=== PATIENT | male | born 1940 | race Caucasian/White ===

== ENCOUNTER 2023-04-29 11:31 | Outpatient (REF) | payer MEDICARE, OTHER, SELFPAY ==
--- NOTE | ~2023-04-29 | XR_ITS ---
EXAMINATION: XR KNEE, LEFT CLINICAL INFORMATION: Chronic pain of left knee COMPARISON: None available. TECHNIQUE: 5 views of the left knee. FINDINGS: No fracture or joint effusion. Alignment is anatomic. There is tricompartmental narrowing of the left knee with moderate to severe narrowing of the medial compartment and possible chondrocalcinosis of the meniscus, moderate narrowing of the lateral compartment and while sunrise view could not be obtained there is probable narrowing of the patellofemoral compartment as well. XR/XR knee LT 4V IMPRESSION: Moderate to severe degenerative change of the left knee.
== END 2023-04-29 11:32 | disposition home or self-care (01) ==
LOC: HO.HHCX 11:31
PROVIDERS: Visit Provider Internal Medicine Geriatric Medicine
DX: M25.562 Pain in left knee (principal)
CPT/HCPCS: 73564

== ENCOUNTER 2023-08-29 14:33 | Outpatient (AMB) | payer MEDICARE, OTHER, SELFPAY ==
--- NOTE | 2023-08-29 14:41 | MHC.OFFVIS ---
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 He does have some redness swelling and scaly skin on both LE Accompanied by: Employer Allergies No Known Allergies Allergy (Verified 08/29/23 14:44) HPI CREPE SOLE WIRE BRUSHER/Name referral PVD HPI Details Very complex 82-year-old gentleman presents for evaluation regarding lower extremity swelling and discomfort. He actually presented to our office in a wheelchair. 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 He is also being maintained on Xarelto for his paroxysmal AFib. He has had significant edema of the lower extremities somewhat so that he has developed ulceration and bleeding at the time of his visit on his right calf. He reports that he has known about this for a significant period of time but has not had anything performed for this. Complaints include pain over varicosities, swelling of lower extremities, cramping, fatigue, and heaviness of the lower extremities along with active ulceration. It has been affecting there daily activities including walking. It is noted more so in right leg. Patient denies any previous venous surgery or injections. Patient denies any history of DVT/ PE. Patient denies any history of phlebitis. Trial of compression includes - [id number] which he cannot tolerate They now present for vascular evaluation regarding their varicose veins. Review of Systems Const Reports as per HPI ENT Reports no additional complaints Card Denies chest pain, Denies chest pain at rest and Denies chest pain with activity Resp Denies chest congestion and Denies cough GI Reports no additional complaints Musc Details: pain over varicosities, aching of lower extremities, swelling, cramping, heaviness and tiredness, itching Denies abnormal gait Skin/Breast Reports pruritus and Denies wounds Neuro Reports no additional complaints and Denies abnormal gait Psych Denies no additional complaints Physical Exam Vital Signs: BMI result Body Mass Index 33.8 Const General: cooperative, healthy appearing and comfortable Orientation/consciousness: oriented to person, oriented to place and oriented to time Neck Carotids: no bruits Chest Chest palpation & inspection: normal inspection of the chest and normal palpation of entire chest wall Resp Effort & Inspection: normal respiratory effort and able to speak in complete sentences Cardio Rate: regular rate Heart sounds: S1 normal heart sound present and S2 normal heart sound present Peripheral pulses: Peripheral pulses 2+ throughout GI Inspection: Yes normal to inspection Skin Other: +2 edema, bilateral ulceration CEAP Classification C6 active ulcer Ep - Etiology Primary As - superficial veins P - reflux General skin exam: dry skin Wounds: wounds noted Neuro General: oriented to person, oriented to place and oriented to time Extrem Right lower extremity: full ROM, normal capillary refill and edema Left lower extremity: full ROM, normal capillary refill and edema Psych Mental Status: mental status grossly normal Assessment & Plan Assessment & Plan (1) Varicose veins of right lower extremity with inflammation: Code(s): I83.11 - Varicose veins of right lower extremity with inflammation Plan: In short, the patient has evidence of venous insufficiency with ulceration. I have discussed the pathophysiology with the patient. In addition I have provided informational material regarding venous disease to the patient. We have discussed conservative measures including compression, elevation, and exercise. I have also provided a handout regarding appropriate use of compression stockings and where to purchase good compression stockings as well. I have taken the liberty of ordering venous insufficiency testing with the patient. They will follow up with me after testing. The patient had an opportunity to ask questions regarding the treatment plan. All questions were answered. Imaging studies, laboratory studies and physical exam results were discussed and reviewed in detail. No major barriers to understanding were identified. The patient expressed understanding and agreement with the above treatment plan. The patient is aware they should contact our office by phone for worsening of the current condition or the appearance of new symptoms. Thank you for allowing me to participate in the vascular care of this patient. If you have any questions or concerns regarding the treatment for the above condition please do not hesitate to contact me. The office telephone contact is [phone]. This note is constructed using voice recognition software. While every effort has been made to ensure accuracy, supervisor boatbuilders wood errors may have been included. Thank you for allowing me to participate in the care of your patient. Yours sincerely, Sarwat Santos MD, FACS, R.P.V.I. Orders: Orders US venous duplex LE BI 1 Week I83.11 - Varicose veins of right lower extremity with inflammation Coding Level of Care Code New Pt Level 4 (22004) Diagnoses Varicose veins of right lower extremity with inflammation I83.11
[2023-08-29 14:43] VITALS: BMI 33.8
== END 2023-08-29 15:42 | disposition home or self-care (01) ==
PROVIDERS: Visit Provider Surgery Vascular Surgery
DX: I83.11 Varicose veins of right lower extremity with inflammation (principal)
CPT/HCPCS: 99203

== ENCOUNTER → 2023-08-29 14:33 | Outpatient (BNVA) | payer MEDICARE, OTHER, SELFPAY | PROVIDERS: Visit Provider Surgery Vascular Surgery | DX: I83.11 Varicose veins of right lower extremity with inflammation (principal) | CPT/HCPCS: 99202 ==

== ENCOUNTER 2024-01-01 16:05 | Outpatient (REF) | payer MEDICARE, OTHER, SELFPAY ==
[2024-01-01 17:43] LABS: MANUAL DIFF FLAG NO
[2024-01-01 18:14] LABS: Alanine Aminotransferase 40 U/L (0-40); Alkaline Phosphatase 91 U/L (39-117); Anion Gap 14 (12-20); Aspartate Amino Transferase 29 U/L (5-37); Bilirubin Total 0.8 mg/dL (0.0-1.0); Blood Urea Nitrogen 16 mg/dL (9-16); Calcium 10.7 mg/dL (8.4-10.2); Carbon Dioxide 27 mmol/L (22-29); Chloride 103 mmol/L (96-108); Cholesterol 141 mg/dL (<200); Estimated Glomerular Filt Rate > 60; Glucose Random 113 mg/dL (60-115); HDL Cholesterol 53 mg/dL (>40); LDL Cholesterol Calculated 70 mg/dL (<100); Potassium 3.4 mmol/L (3.3-5.1); Sodium 141 mmol/L (135-145); Total Protein 7.9 g/dL (6.5-8.0); Triglycerides 90 mg/dL (<150)
[2024-01-01 18:21] LABS: Basophils Percent Auto 0.3 % (0-2); Eosinophils Absolute Auto 0.2 X10*3/uL (0.0-0.4); Hematocrit 46.7 % (42.0-52.0); Hemoglobin 15.7 g/dl (14.0-18.0); Imm Gran Abs Auto 0.04 X10*3/uL (0.00-0.03); Imm Gran Pct Auto 0.5 % (0.0-0.4); Lymphocytes Absolute Auto 1.4 X10*3/uL (1.2-4.9); Lymphocytes Percent Auto 16.2 % (20-40); Mean Corpuscular HGB Conc 33.6 g/dl (31.0-36.0); Mean Corpuscular Hemoglobin 31.2 pg (27.0-33.0); Mean Corpuscular Volume 92.8 fL (80.0-98.0); Mean Platelet Volume 9.2 fL (9.4-12.4); Monocytes Absolute Auto 0.8 X10*3/uL (0.1-1.2); Monocytes Percent Auto 8.4 % (2-11); Neutrophils Absolute Auto 6.4 x10*3/uL (2.0-8.3); Neutrophils Percent Auto 72.6 % (45-73); Platelet Count 261 X10*3/uL (160-400); Red Blood Count 5.03 X10*6/uL (4.60-5.80); Red Cell Distribution Width 13.7 % (11.0-16.0); White Blood Count 8.9 X10*3/uL (4.8-10.8)
== END 2024-01-01 16:06 | disposition home or self-care (01) ==
LOC: HO.HHCL 16:05
PROVIDERS: Visit Provider Internal Medicine Geriatric Medicine
DX: I10 Essential (primary) hypertension (principal); R03.0 Elevated blood-pressure reading, without diagnosis of hypertension; E78.5 Hyperlipidemia, unspecified; Z79.01 Long term (current) use of anticoagulants
CPT/HCPCS: 36415; 80053; 80061; 85025

== ENCOUNTER 2024-04-17 16:14 | Outpatient (REF) | payer MEDICARE, OTHER, SELFPAY ==
[2024-04-17 18:14] LABS: Anion Gap 15 (12-20); Blood Urea Nitrogen 20 mg/dL (9-16); Calcium 9.5 mg/dL (8.4-10.2); Carbon Dioxide 27 mmol/L (22-29); Chloride 105 mmol/L (96-108); Estimated Glomerular Filt Rate > 60; Glucose Random 117 mg/dL (60-115); Potassium 3.5 mmol/L (3.3-5.1); Sodium 143 mmol/L (135-145)
[2024-04-17 18:32] LABS: Vitamin D 25-OH Total 16.3 ng/mL (>30)
[2024-04-18 05:43] LABS: Parathyroid Hormone Intact 78.4 pg/mL (8.7-77.1)
== END 2024-04-17 16:15 | disposition home or self-care (01) ==
LOC: HO.HHCL 16:14
PROVIDERS: Visit Provider Internal Medicine Geriatric Medicine
DX: E83.52 Hypercalcemia (principal)
CPT/HCPCS: 36415; 80048; 82306; 83970

== ENCOUNTER 2024-07-20 15:35 | Outpatient (REF) | payer MEDICARE, OTHER, SELFPAY ==
[2024-07-20 16:44] LABS: MANUAL DIFF FLAG NO
[2024-07-20 16:57] LABS: Basophils Percent Auto 0.5 % (0-2); Eosinophils Absolute Auto 0.2 X10*3/uL (0.0-0.4); Eosinophils Percent Auto 2.5 % (0-4); Hematocrit 43.7 % (42.0-52.0); Hemoglobin 14.6 g/dl (14.0-18.0); Imm Gran Abs Auto 0.03 X10*3/uL (0.00-0.03); Imm Gran Pct Auto 0.4 % (0.0-0.4); Lymphocytes Absolute Auto 1.1 X10*3/uL (1.2-4.9); Lymphocytes Percent Auto 13.9 % (20-40); Mean Corpuscular HGB Conc 33.4 g/dl (31.0-36.0); Mean Corpuscular Hemoglobin 30.9 pg (27.0-33.0); Mean Corpuscular Volume 92.6 fL (80.0-98.0); Mean Platelet Volume 9.2 fL (9.4-12.4); Monocytes Absolute Auto 0.8 X10*3/uL (0.1-1.2); Monocytes Percent Auto 10.4 % (2-11); Neutrophils Absolute Auto 5.8 x10*3/uL (2.0-8.3); Neutrophils Percent Auto 72.3 % (45-73); Platelet Count 252 X10*3/uL (160-400); Red Blood Count 4.72 X10*6/uL (4.60-5.80); Red Cell Distribution Width 13.9 % (11.0-16.0); White Blood Count 8.1 X10*3/uL (4.8-10.8)
[2024-07-20 17:14] LABS: Parathyroid Hormone Intact 61.3 pg/mL (8.7-77.1)
[2024-07-20 17:26] LABS: Anion Gap 15 (12-20); Blood Urea Nitrogen 17 mg/dL (9-16); Calcium 9.7 mg/dL (8.4-10.2); Carbon Dioxide 28 mmol/L (22-29); Chloride 104 mmol/L (96-108); Estimated Glomerular Filt Rate > 60; Glucose Random 96 mg/dL (60-115); Potassium 3.5 mmol/L (3.3-5.1); Sodium 143 mmol/L (135-145)
[2024-07-20 17:31] LABS: Vitamin D 25-OH Total 30.4 ng/mL (>30)
== END 2024-07-20 15:36 | disposition home or self-care (01) ==
LOC: HO.HHCL 15:35
PROVIDERS: Visit Provider Internal Medicine Geriatric Medicine
DX: I10 Essential (primary) hypertension (principal); Z79.01 Long term (current) use of anticoagulants
CPT/HCPCS: 36415; 80048; 82306; 83970; 85025

== ENCOUNTER 2025-03-08 14:01 | Outpatient (REF) | payer MEDICARE, OTHER, SELFPAY ==
--- OUTSIDE RECORDS SUMMARY | 2025-03-08 14:08 | XMS_ITS | Encounter Summary ---
Author Organization [facility] Address [address] [address] Phone Care Team Providers Care Shuttle Inspector Name Role Phone Devaughn Ng MD Unavailable [phone] Billy Issa MD Unavailable [phone] Mil Rowe MD Unavailable [phone] Billy Issa MD Primary Care Provid er Encounter Details Date Type Department Care Team (Latest Contact Info) Description 05/28/2018 Ancillary Orders Non-Invasive Cardiology [address] [place] [address] Devaughn Ng MD [address] [place] [address] [email or web address] Cardioembolic stroke Social History Tobacco Use Types Packs/Day Years Used Date Smoking Tobacco: Former Cigarettes Q uit: 12/26/1967 Smokeless Tobacco: Former Quit: 12/26/1967 Comments:Smoked pipe,did not inhale Alcohol Use Standard Drinks/Week Comments Yes 0 (1 standard drink = 0.6 oz pur e alcohol) occ Sex and Gender Information Value Date Recorded Sex Assigned at Not on file Legal Sex Male 10:12 PM EDT Gender Identity Not on file Sexual Orientation Not on file documented as of this encounter Plan of Treatment Not on file documented as of this encounter Visit Diagnoses Diagnosis Cardioembolic stroke documented in this encounter Care Teams Shuttle Inspector Relationship Specialty Start Date End Date Billy Issa MD [address] [facility] [address] [place] [address] PCP - General 10/24/17 Devaughn Ng MD [email or web address] Historical LMR Provider 08/10/17 Billy Issa MD [address] [place] [address] Historical LMR Provider 08/10/17 2 Mil Rowe MD [address] [place] [address] [email or web address] Historical LMR Provider 08/10/17 10/28/21 documented as of this encounter Additional Source Comments The information contained in this document represents components of the legal health record. It is not the complete legal health record.[facility]
--- OUTSIDE RECORDS SUMMARY | 2025-03-08 14:08 | XMS_ITS | Encounter Summary ---
Author Organization [facility] Address [address] [facility] [address] [place] [address] Phone Care Team Providers Care Roof Fixer Name Role Phone Devaughn Ng MD Unavailable [phone] Billy Issa MD Unavailable [phone] Mil Rowe MD Unavailable [phone] Billy Issa MD Primary Care Provid er Encounter Details Date Type Department Care Team (Late st Contact Info) Description 05/28/2018 Ancillary [facility] [address] [place] [address] Devaughn Ng MD [address] [place] [address] [email or web address] Social History Tobacco Use Types Packs/Day Years [...] documented as of this encounter Visit Diagnoses Not on filedocumented in this encounter Care Teams Roof Fixer Relationship Specialty Start Date End Date Billy Issa MD [address] [facility] [address] [place] [address] PCP - General 10/24/17 Devaughn Ng MD [email or web address] Historical LMR Provider 08/10/17 Billy Issa MD [address] [place] [address] 1 [place] [address] Historical LMR Provider 08/10/17 2 Mil Rowe MD [address] [place] [address] [email or web address] Historical LMR Provider 08/10/17 10/28/21 documented as of this encounter Additional Source Comments The information contained in this document represents components of the legal health record. It is not the complete legal health record.[facility]
--- OUTSIDE RECORDS SUMMARY | 2025-03-08 14:08 | XMS_ITS | Encounter Summary ---
Author Organization [facility] Address [address] [facility] [address] [place] [address] Phone Care Team Providers Care Tooth Grinder Name Role Phone Devaughn Ng MD Unavailable Billy Issa MD Unavailable [phone] Mil Rowe MD Unavailable [phone] Billy Issa MD Primary Care Provid er Encounter Details Date Type Department Care Team (Late st Contact Info) Description 03/23/2021 Ancillary Orders Non-Invasive Cardiology [address] [place] [address] Walter Sheikh MD [address] [place] [address] [email or web address] Cryptogenic stroke Social History Tobacco Use Types Packs/Day [...] on file documented as of this encounter Results * DEVICE CHECK: ILR IN-HOME INTERROGATION (03/23/2021 3:18 PM EDT) Narrative Walter Sheikh MD - 03/27/2021 9:15 PM EDT Remote interrogation of implantable loop recorder. ??Reason for implant: ?? Cryptogenic stroke ?? Insurance Claim Representative: [employer] Symptoms: ??0 Pauses: ??19, undersensed R waves Bradycardia: ??0 Tachycardia: ??1 AF w/RVR on 02/18, actual rates to 170's AT/AF: ??615 episodes since November, AF burden 2.3% lifetime He is anticoagulated on Xarelto Battery status: OK Additional comments: ??Device functioning appropriately. Normal device function. Patient to follow-up for continued monitoring every 1 month. Report prepared by Brenna Tyler RN us Walter Sheikh MD [facility] [place] Final Result documented in this encounter Visit Diagnoses Diagnosis Cryptogenic stroke Cryptogenic stroke documented in this encounter Care Teams Tooth Grinder Relationship Specialty Start Date End Date Billy Issa MD [address] [address] PCP - General 10/24/17 Devaughn Ng MD [email or web address] Historical LMR Provider 08/10/17 Billy Issa MD [address] [place] [phone] Historical LMR Provider 08/10/17 2 Mil Rowe MD [address] [address] [email or web address] Historical LMR Provider 08/10/17 10/28/21 documented as of this encounter Additional Source Comments The information contained in this document represents components of the legal health record. It is not the complete legal health record.[facility]
--- OUTSIDE RECORDS SUMMARY | 2025-03-08 14:08 | XMS_ITS | Encounter Summary ---
Author Organization [employer] Address [address] [place] [address] 7 [place] [address] Care Team Providers Care Tag Maker Name Role Phone Name, Stephen PADRON Primary Care Provider [phone] Reason for Visit * Reason Comments Med Refill Encounter Details Date Type Department Care Team ([facility] Contact Info) Description 09/05/2024 Refill [facility] [address] [place], [place] [id number] Name, MD Stephen [address] [place] [address] Social History Tobacco Use Types Packs/Day Years Used Date Smoking Tobacco: Never Smokeless Tobacco: Never Alcohol Use Standard Drinks/Week Comments Not Currently 0 (1 standard drink = 0.6 oz pur e alcohol) occassional Alcohol Answer Date Recorded Frequency of Alcohol Consumption Not on file 04/17/2024 Average Number of Drinks Not on file 024 Frequency of Binge Drinking Not on file 03/22 Score 0 04/17/2024 Depression Answer Date Recorded Patient Health Questionnaire-9 Score 0 04/17/2024 Patient Health Questionnaire-9 Score 0 04/17/2024 Last PHQ-9: Questionnaire Data Not on file 0 04/17/2024 Housing Stability Answer Date Recorded What is your housing situation today? I have nena nava 08/06/[address] you li ve. Do you have problems with any of the following? None of the above 08/06/2023 Food Insecurity Answer Date Recorded Within the past 12 months, y ou worried that your food would run out before you got money to buy more: Never True 08/06/2023 Within the past 12 months,th e food you bought just didn't last and you didn't have enough money to get more: Never True Transportation Answer Date Recorded In the past 12 months, has l ack of transportation kept you from medical appts, meetings, work or from getting things needed for daily living? No 08/06/2023 Utilities Answer Date Recorded In the past 12 months, has t he electric, gas, oil or water company threatened to shut off services in your home? No 08/06/2023 Depression Answer Date Recorded Patient Health Questionnaire-2 Score 0 04/17/2024 Internet Access Answer Date Recorded Internet Access Q1 No 06/22/2024 Internet Access Q2 I do not want or need it 11/2023 Sex and Gender Information Value Date Recorded Sex Assigned at Male 04/03/2023 10:36 AM EDT Legal Sex Male 10:33 AM EDT Gender Identity Male 04/03/2023 10:36 AM EDT Sexual Orientation Straight 04/03/2023 10 :36 AM EDT documented as of this encounter Plan of Treatment Not on file documented as of this encounter Visit Diagnoses Not on filedocumented in this encounter Additional Health Concerns Assessment Noted Time PHQ-9 Depression Total Score: 0 04/17/20 24 3:31 PM EDT documented as of this encounter Care Teams Tag Maker Relationship Specialty Start Date End Date Name, MD Stephen [address] [place] [address] PCP - General Internal Medicine 04/29/23 documented as of this encounter
--- OUTSIDE RECORDS SUMMARY | 2025-03-08 14:08 | XMS_ITS | Encounter Summary ---
Author Organization [facility] Address [address] [facility] [address] [place] [address] Phone Care Team Providers Care Distillery Miller Name Role Phone Devaughn Ng MD Unavailable Billy Issa MD Unavailable [phone] PerMil veliz MD Unavailable [phone] Billy Issa MD Primary Care Provid er Encounter Details Date Type Department Care Team (Late st Contact Info) Description 12/27/2017 Procedure [facility] [address] [place] [address] Social History Tobacco Use Types Packs/Day Years Used Date Smoking Tobacco: Former Cigarettes Q uit: 12/26/1967 Smokeless Tobacco: Former Quit: 12/26/1967 Comments:Smoked pipe,did not inhale Sex and Gender Information Value Date Recorded Sex Assigned at Not on file Legal Sex Male 10:12 PM EDT Gender Identity Not on file Sexual Orientation Not on file documented as of this encounter Plan of Treatment Not on file documented as of this encounter Visit Diagnoses Not on filedocumented in this encounter Care Teams Distillery Miller Relationship Specialty Start Date End Date Billy Issa MD [address] [facility] [address] [place] [address] PCP - General 10/24/17 Devaughn Ng MD [email or web address] Historical LMR Provider 08/10/17 Billy Issa MD 35 [facility] 1 [place] [address] Historical LMR Provider 08/10/17 2 Mil Rowe MD [address] [place] [address] [email or web address] Historical LMR Provider 08/10/17 10/28/21 documented as of this encounter Additional Source Comments The information contained in this document represents components of the legal health record. It is not the complete legal health record.[facility]
--- OUTSIDE RECORDS SUMMARY | 2025-03-08 14:08 | XMS_ITS | Encounter Summary ---
Author Organization [facility] Address [address] [facility] [address] [place] [address] Phone Care Team Providers Care Business Manager Name Role Phone Devaguhn Ng MD Unavailable [phone] Billy Issa MD Unavailable [phone] Mil Rowe MD Unavailable [phone] Billy Issa MD Primary Care Provid er Encounter Details Date Type Department Care Team (Late st Contact Info) Description 12/13/2020 Ancillary Orders Non-Invasive Cardiology [address] [place] [address] Devaughn Ng MD [address] [place] [address] [email or web address] Cryptogenic stroke Social History Tobacco Use Types [...] Results * DEVICE CHECK: ILR IN-HOME INTERROGATION (12/13/2020 9:31 AM EST) Narrative Devaughn Ng MD - 12/13/2020 4:03 PM EST Interrogation of [employer] implantable loop recorder. ??Indication cryptogenic stroke. Since last interrogation - Bradycardia? 0 Tachycardia? 0 Pauses? 0 Atrial tachycardia/atrial fibrillation 0 We will continue to monitor routinely. Eduard Kraft NP Devaughn Ng MD [facility] [place] Final Result documented in this encounter Visit Diagnoses Diagnosis Cryptogenic stroke Cryptogenic stroke documented in this encounter Care Teams Business Manager Relationship Specialty Start Date End Date Billy Issa MD [address] [facility] [address] [place] [phone] PCP - General 10/24/17 Devuaghn Ng MD [email or web address] Historical LMR Provider 08/10/17 Billy Issa MD [address] [facility] [address] [place] [address] Historical LMR Provider 08/10/17 2 Mil Rowe MD [address] [place] [address], [address] [address] [email or web address] Historical LMR Provider 08/10/17 10/28/21 documented as of this encounter Additional Source Comments The information contained in this document represents components of the legal health record. It is not the complete legal health record.[facility]
--- OUTSIDE RECORDS SUMMARY | 2025-03-08 14:08 | XMS_ITS | Encounter Summary ---
Author Organization [facility] Address [address] [facility] [address] [place] [address] Phone Care Team Providers Care Food Service Order Clerk Name Role Phone Devaughn Ng MD Unavailable Billy Issa MD Unavailable [phone] Mil Rowe MD Unavailable [phone] Billy Issa MD Primary Care Provid er Encounter Details Date Type Department Care Team (Late st Contact Info) Description 05/13/2018 Ancillary [facility] [address] [place] [address] Devaughn Ng MD [address] [place] [address] [email or web address] Social History Tobacco Use Types Packs/Day Years [...] on filedocumented in this encounter Care Teams Food Service Order Clerk Relationship Specialty Start Date End Date Billy Issa MD [address] [facility] [address] [place] [address] PCP - General 10/24/17 Devaughn Ng MD [email or web address] Historical LMR Provider 08/10/17 Billy Issa MD [address] [place] [address] 1 [place] [address] Historical LMR Provider 08/10/17 2 Mil Rowe MD [address] [place] [address] [email or web address] Historical LMR Provider 08/10/17 10/28/21 documented as of this encounter Additional Source Comments The information contained in this document represents components of the legal health record. It is not the complete legal health record.[facility]
--- OUTSIDE RECORDS SUMMARY | 2025-03-08 14:08 | XMS_ITS | Clinical Summary ---
Author Organization [facility] Address [address] [facility] [address] [place] [address] Phone Care Team Providers Care Sem Manager Name Role Phone Devaughn Ng MD Unavailable [phone] Billy Issa MD Primary Care Provid er Allergies Active Allergy Reactions Criticality Noted Date Comments House Dust Sneezing 01/06/2018 Pollens Extract Sneezing 01/06/2018 Medications VIT C/E/ZN/COPPR/LUTE IN/ZEAXAN (PRESERVISION AREDS 2 ORAL) Active chlorthalidone (HYGROTON) 25 MG tablet Take 1 tablet by mouth every morning. Active losartan (COZAAR) 50 MG tablet Take 1 tablet by mouth daily. Active LACTOBACILLUS ACIDOPHILUS (PROBIOTIC ORAL) Act jericho flaxseed oil Oil Act jericho calcium carbonate (OS-ITA) 1,500 mg (600 mg elemental) tablet Take 1 tablet by mouth daily. with meals Active Medication-Free Text Vitamin D-3 Active UBIDECARENONE (COQ-10 ORAL) Active Medication-Free Text Vitamin B 12 Active Medication-Free Text Multivitamin Active DOCOSAHEXANOIC ACID/EPA (FISH OIL ORAL) Active BILBERRY ORAL Active atorvastatin (LIPITOR) 40 MG tablet Take 40 mg by mouth daily. Active potassium chloride SA (K-DUR,KLOR-CON) 20 MEQ ER tablet Take 20 mEq by mouth 2 (two) times a day. Active GLUCOSAMINE HCL AND SULFATE (GLUCOSAMINE COMPLEX ORAL) Take by mouth. A ctive amLODIPine (NORVASC) 10 MG tablet Take 10 mg by mouth daily. Active BIOTIN ORAL Take 1 tablet by mouth daily. Active XARELTO 20 mg TabIndications:Hi story of cardioembolic stroke,Paroxysmal atrial fibrillation TAKE 1 TABLET BY MOUTH EVERY DAY WITH DINNER 90 tablet 1 12/04/19 22 Active Active Problems Problem Noted Date Diagnosed Date Paroxysmal atrial fibrillation 08/10/2018 Overview (08/10/2018): Detected by implanted loop recorder Assessment & Plan (12/04/2019 4:40 PM EST): We will continue to check his device routinely. He has remote monitoring which we are checking to make sure that it is connected properly. We will follow-up with him in 1 year per his request. I have sent a refill for his anticoagulant. He is asymptomatic. Continue with current occasions. Bigeminy 12/11/2017 Essential hypertension 12/11/2017 Assessment & Plan (12/04/2019 4:40 PM EST): His blood pressure today is elevated. He tells me that he usually gets it checked at his PCP office and it is in the 130s systolic. Today it is 150/70 on multiple checks (per his request). I have suggested that we increase his losartan since he tells me that he is consistently over 130 systolic. He tells me he would prefer to follow this with his PCP. Palpitations 12/11/2017 History of cardioembolic stroke 12/11/2017 Overview (12/11/2017): November 2017, [facility] Assessment & Plan (12/04/2019 4:40 PM EST): Continue anticoagulation. Family History Medical History Relation Comments Hypertension Sibling 2 Relation Status Comments Sibling 1 Sibling 2 Social History Tobacco Use Types Packs/Day Years Used Date Smoking Tobacco: Former Cigarettes Q uit: 12/26/1967 Smokeless Tobacco: Former Quit: 12/26/1967 Comments:Smoked pipe,did not inhale Alcohol Use Standard Drinks/Week Comments Yes 0 (1 standard drink = 0.6 oz pur e alcohol) occ Education Answer Date Recorded Are you interested in more education? Not on felicitas e 02/15/2023 Are you concerned about learning? Not on file 02/15/2023 No 02/15/2023 No 02/15/2023 Digital Access Answer Date Recorded No 03/16/2023 No 03/16/2023 No 03/16/2023 Reliable internet access at home? Not on file 03/16/2023 Device with a working camera? Not on file Sex and Gender Information Value Date Recorded Sex Assigned at Not on file Legal Sex Male 10:12 PM EDT Gender Identity Not on file Sexual Orientation Not on file Last Filed Vital Signs Vital Sign Reading Time Taken Comments Blood Pressure 150/70 12/04/2019 4:09 PM EST Pulse 92 12/04/2019 4:09 PM EST Temperature 36.8 ??C (98.2 ??F) 01/10/2018 7:00 AM ED T Respiratory Rate 12 01/10/2018 7:00 AM EDT Oxygen Saturation 93% 12/04/2019 4:09 PM EST Inhaled Oxygen Concentration - - Weight 100.5 kg (221 lb 9.6 oz) 12/04/2019 4:09 PM EST Height 176.5 cm (5' 9.5 ) 12/04/2019 4:09 PM EST Body Mass Index 32.26 12/04/2019 4:09 PM EST Plan of Treatment Health Maintenance Due Date Last Done Comments Adult Td,Tdap Booster 1940 BLOOD PRESSURE 1940 CREATININE LEVEL 1940 POTASSIUM LEVEL 1940 DEPRESSION SCREENING 1952 PNEUMOCOCCAL VACCINES (50+ years) (1 of 1 - PCV) 1990 RSV VACCINE (1 - 1-dose 75+ series) 2015 COVID-19 VACCINE (3 - 2023-2 5 season) 2024 01/03/2021, 12/06/2020 ZOSTER VACCINES Completed 04/01/2018, 02/01/2018 HEPATITIS A VACCINES Aged Out No long er eligible based on patient's age to complete this topic HIB VACCINES Aged Out No longer eligi ble based on patient's age to complete this topic MENINGOCOCCAL VACCINES (ACWY) Aged Out No longer eligible based on patient's age to complete this topic MENINGOCOCCAL VACCINES (B) Aged Out N o longer eligible based on patient's age to complete this topic Medical Devices Implanted Type Area Wall Taper Device Identifier Shelf Expiration Date Model / Serial / Lot Reveal Linq Loop Recorder System - [id number] Implanted:Qty : 1 on 01/10/2018 by Devaughn Ng MD at [facility] Implantable Monitor [employer] [id number] 09/17/2018 [id number] / [id number] S / Insurance MEDICARE PART A & B [employer] MEDICARE SUPPLEMENT MEDICARE PART A & B [employer] MEDICARE SUPPLEMENT MEDICARE PART A & B [facility] MEDICARE SUPPLEMENT MEDICARE PART A & B [facility] [employer] MEDICARE SUPPLEMENT MEDICARE PART A & B [facility] MEDICARE SUPPLEMENT MEDICARE PART A & B [facility] MEDICARE SUPPLEMENT MEDICARE PART A & B [facility] [id number] MEDICARE PART A & B Member Subscriber Plan / Payer (Ef fective 2013-Present) Name:Devaughn Rebolledo Member ID:[id number] Relation to Subscriber:Self Name:Amaury Devaughn Subscriber ID:[id number] Payer ID:[id number] Group ID:Not on file Type:Medicare Address: [employer] [address] [employer] MEDICARE SUPPLEMENT MEDICARE PART A & B [employer] MEDICARE SUPPLEMENT Advance Directives For more information, please contact: [phone] (9AM - 5PM [place], Saturday-Saturday) * Full Code (Presumed) (Latest Code Status on File) Date Activated Date Inactivated Comments 01/10/2018 7:46 AM 01/11/2018 4:14 AM Care Teams Sem Manager Relationship Specialty Start Date End Date Billy Issa MD [address] [place] [phone] PCP - General 10/24/17 Devaughn Ng MD [email or web address] Historical LMR Provider 08/10/17 Additional Source Comments The information contained in this document represents components of the legal health record. It is not the complete legal health record.[facility]
--- OUTSIDE RECORDS SUMMARY | 2025-03-08 14:08 | XMS_ITS | Encounter Summary ---
Author Organization [facility] Address [address] [facility] [address] [place] [address] Phone Care Team Providers Care Hop Trainer Name Role Phone Devaughn Ng MD Unavailable Billy Issa MD Unavailable [phone] Mil Rowe MD Unavailable [phone] Billy Issa MD Primary Care Provid er Encounter Details Date Type Department Care Team (Late st Contact Info) Description 01/10/2018 Procedure Pass [facility] [address] [place] [address] Social History Tobacco Use Types Packs/Day Years [...] on filedocumented in this encounter Care Teams Hop Trainer Relationship Specialty Start Date End Date Billy Issa MD [address] [facility] 1 [place] [phone] PCP - General 10/24/17 Devaughn Ng MD [email or web address] Historical LMR Provider 08/10/17 Billy Issa MD [address] [place] [address] 1 [place] [address] Historical LMR Provider 08/10/17 2 Mil Rowe MD [address] [place] [address] [email or web address] Historical LMR Provider 08/10/17 10/28/21 documented as of this encounter Additional Source Comments The information contained in this document represents components of the legal health record. It is not the complete legal health record.[facility]
--- OUTSIDE RECORDS SUMMARY | 2025-03-08 14:08 | XMS_ITS | Encounter Summary ---
Author Organization [facility] Address [address] [facility] [address] [place] [address] Phone Care Team Providers Care Rim Fire Priming Tool Setter Name Role Phone Devaughn Ng MD Unavailable [phone] Billy Issa MD Unavailable [phone] Mil Rowe MD Unavailable [phone] Billy Issa MD Primary Care Provid er Encounter Details Date Type Department Care Team (Late st Contact Info) Description 05/13/2018 Ancillary Orders Non-Invasive Cardiology [address] [place] [address] Devaughn Ng MD [address] [place] [address] [email or web address] Atrial fibrillation, unspecified type Social History Tobacco Use Types Packs/Day Years [...] this encounter Results * DEVICE CHECK: ILR REMOTE INTERROGATION W/TECH REVIEW (05/13/2018 11:40 AM EDT) Narrative Devaughn Ng MD - 05/19/2018 5:27 PM EDT Interrogation of the implantable loop recorder - placed for cryptogenic stroke Atrial fibrillation: There were 9 episodes of atrial fibrillation representing 1.9% of the time. Tachycardia: 0 Bradycardia: 0 Pauses: 0 The patient is anticoagulated on Xarelto. Eduard Kraft SUPERVISOR CONCRETE BLOCK PLANT Devaughn Ng MD [facility] ORDER [place] Final Result documented in this encounter Visit Diagnoses Diagnosis Atrial fibrillation, unspecified type Atrial fibrillation, unspecified type documented in this encounter Care Teams Rim Fire Priming Tool Setter Relationship Specialty Start Date End Date Billy Issa MD [address] [facility] [employer] [address] [facility] [address] [place] [phone] PCP - General 10/24/17 Devaughn Ng MD [email or web address] Historical LMR Provider 08/10/17 Billy Issa MD [address] [facility] [employer] [address] [place] [phone] Historical LMR Provider 08/10/17 2 Mil Rowe MD [address] [place] [address], [address] [address] [email or web address] Historical LMR Provider 08/10/17 10/28/21 documented as of this encounter Additional Source Comments The information contained in this document represents components of the legal health record. It is not the complete legal health record.[facility]
--- OUTSIDE RECORDS SUMMARY | 2025-03-08 14:08 | XMS_ITS | Encounter Summary ---
Author Organization [employer] Address [address] [facility] 7t [place] [address] Care Team Providers Care Starting Sheet Tank Operator Name Role Phone Name, Stephen PADRON Primary Care Provider [phone] Encounter Details Date Type Department Care Team (Latest Contact Info) Description 03/08/2025 Travel Social History Tobacco Use Types Packs/Day Years [...] documented as of this encounter Care Teams Starting Sheet Tank Operator Relationship Specialty Start Date End Date Name, MD Stephen [address] [place] [address] PCP - General Internal Medicine 04/29/23 documented as of this encounter
--- OUTSIDE RECORDS SUMMARY | 2025-03-08 14:08 | XMS_ITS | Encounter Summary ---
Author Organization [employer] Address [address] [place] [address] 7 [place] [address] Care Team Providers Care Steam Locomotive Firer/Fireman Name Role Phone Name, Stephen PADRON Primary Care Provider [phone] Reason for Visit * Reason Onset Date Comments Appointment Request 02/02/2025 Encounter Details Date Type Department Care Team ([facility] Contact Info) Description 02/02/2025 Telephone [facility] MEDICINE [address] [place], [place] [phone] Name, MD Stephen [address] [place] [address] Appointment Request Social History Tobacco Use Types Packs/Day Years [...] AM EDT documented as of this encounter Miscellaneous Notes * Telephone Encounter - Mango Hallman - 02/02/2025 9:21 AM EDT Tc from pt requesting to R/s Appt from 12/01/24. Pt is not available on Tuesdays and Fridays Afternoon. Contact pt at [phone] documented in this encounter Plan of Treatment Not on file documented as of this encounter Visit Diagnoses Not on filedocumented in this encounter Additional Health Concerns Assessment Noted Time PHQ-9 Depression Total Score: 0 04/17/20 24 3:31 PM EDT documented as of this encounter Care Teams Steam Locomotive Firer/Fireman Relationship Specialty Start Date End Date Name, MD Stephen [address] [place] [address] PCP - General Internal Medicine 04/29/23 documented as of this encounter
--- OUTSIDE RECORDS SUMMARY | 2025-03-08 14:08 | XMS_ITS | Encounter Summary ---
Author Organization [facility] Address [address] [facility] [address] [place] [address] Phone Care Team Providers Care Multi Site Leasing Consultant Name Role Phone Devaughn Ng MD Unavailable [phone] Billy Issa MD Unavailable [phone] Mil Rowe MD Unavailable [phone] Billy Issa MD Primary Care Provid er Encounter Details Date Type Department Care Team (Late st Contact Info) Description 03/23/2021 Procedure Pass Non-Invasive Cardiology [address] [place] [address] Social History Tobacco Use Types Packs/Day Years [...] on filedocumented in this encounter Care Teams Multi Site Leasing Consultant Relationship Specialty Start Date End Date Billy Issa MD [address] [facility] 1 [place] [phone] PCP - General 10/24/17 Devaughn Ng MD [email or web address] Historical LMR Provider 08/10/17 Billy Issa MD [address] [place] [address] 1 [place] [phone] Historical LMR Provider 08/10/17 2 Mil Rowe MD [address] [place] [address] [email or web address] Historical LMR Provider 08/10/17 10/28/21 documented as of this encounter Additional Source Comments The information contained in this document represents components of the legal health record. It is not the complete legal health record.[facility]
--- OUTSIDE RECORDS SUMMARY | 2025-03-08 14:08 | XMS_ITS | Encounter Summary ---
Author Organization [facility] Address [address] [facility] [address] [place] [address] Phone Care Team Providers Care Ride Operator Name Role Phone Devaughn Ng MD Unavailable Billy Issa MD Unavailable [phone] Mil Rowe MD Unavailable [phone] Billy Issa MD Primary Care Provid er Encounter Details Date Type Department Care Team (Late st Contact Info) Description 03/23/2021 Ancillary [facility] [address] [facility] 3rd Floor, [address] [place] [address] Walter Sheikh MD 30 [place] [address] [email or web address] Social History Tobacco Use Types Packs/Day Years [...] on filedocumented in this encounter Care Teams Ride Operator Relationship Specialty Start Date End Date Billy Issa MD [address] [facility] [address] [place] [address] PCP - General 10/24/17 Devaughn Ng MD [email or web address] Historical LMR Provider 08/10/17 Billy Issa MD [address] [place] [address] Historical LMR Provider 08/10/17 2 Mil Rowe MD [address] [place] [phone] [email or web address] Historical LMR Provider 08/10/17 10/28/21 documented as of this encounter Additional Source Comments The information contained in this document represents components of the legal health record. It is not the complete legal health record.[facility]
--- OUTSIDE RECORDS SUMMARY | 2025-03-08 14:08 | XMS_ITS | Encounter Summary ---
Author Organization [employer] [facility] Address [address] [place] [address] 7 [place] [address] Care Team Providers Care Entry Level Software Developer Name Role Phone Name, Stephen PADRON Primary Care Provider [phone] Reason for Visit * Reason Comments Hypertension Encounter Details Date Type Department Care Team ([facility] st Contact Info) Description 03/08/2025 1:00 PM EDT Office Visit [facility] 230 [place], [place] [phone] Name, MD Stephen [address] [place] [address] Pressure injury of buttock, stage 1, unspecified laterality (Primary Dx); Cellulitis of buttock; Hypertension, unspecified type; Anticoagulated Social History Tobacco Use Types Packs/Day Years Used Date Smoking Tobacco: Never Smokeless Tobacco: Never Tobacco Cessation:Counseling Given: Not Answered Alcohol Use Standard Drinks/Week Comments Not Currently [...] AM EDT documented as of this encounter Last Filed Vital Signs Vital Sign Reading Time Taken Comments Blood Pressure 147/75 03/08/2025 1:14 PM EDT Pulse 98 03/08/2025 1:14 PM EDT Temperature 36.7 ??C (98.1 ??F) 03/08/2025 1:14 PM ED T Respiratory Rate 12 03/08/2025 1:14 PM EDT Oxygen Saturation 93% 03/08/2025 1:14 PM EDT Inhaled Oxygen Concentration - - Weight 103 kg (228 lb) 03/08/2025 1:14 PM EDT Height - - Body Mass Index 33.67 07/20/2024 2:46 PM EDT documented in this encounter Progress Notes * Stephen Gallegos MD - 03/08/2025 1:00 PM EDT Subjective Patient ID: Carlos Rebolledo is a 84 y.o. male who presents for Hypertension. Patient comes accompanied by his COIL PLACER. His BP was slightly elevated during his visit but is usually normal at home. 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 We reviewed his medication regimen. The only recent changes that he was started on metoprolol instead of carvedilol. He denies significant palpitations, no dizziness or syncope. No bleeding complications on his current dose of Xarelto. He continues to follow with cardiology at [facility]. Today he complains of several weeks of discomfort and redness on the right buttock. The patient spends sitting down most of the day. Review of Systems Constitutional: Negative for chills, fatigue and fever. HENT: Negative for sore throat. Respiratory: Negative for cough, chest tightness and shortness of breath. Cardiovascular: Negative for chest pain, palpitations and leg swelling. Gastrointestinal: Negative for abdominal pain and blood in stool. Visit Vitals BP (!) 147/75 (BP Location: Left arm, Patient Position: Sitting, BP Cuff Size: Large adult) Pulse 98 Temp 98.1 ??F (36.7 ??C) (Temporal) Resp 12 Wt 228 lb (103 kg) SpO2 93% BMI 33.67 kg/m?? Smoking Status Never BSA 2.24 m?? Objective Physical Exam Constitutional: Appearance: Normal appearance. Cardiovascular: Rate and Rhythm: Normal rate and regular rhythm. Heart sounds: No murmur heard. Pulmonary: Effort: Pulmonary effort is normal. No respiratory distress. Breath sounds: No wheezing, rhonchi or rales. Abdominal: Palpations: Abdomen is soft. Tenderness: There is no abdominal tenderness. Musculoskeletal: Right lower leg: No edema. Left lower leg: No edema. Skin: Comments: Patient has a stage I pressure sore on the right buttock. The skin has redness. There aresmall areas of skin breakdown with surrounding skin redness. No pus drainage. Neurological: Mental Status: He is alert. Assessment/Plan Diagnoses and all orders for this visit: Pressure injury of buttock, stage 1, unspecified laterality Comments: We discussed the importance of changing positions regularly. He has been using triple antibiotic that he is encouraged to continue. I also recommended a course of doxycycline. He is encouraged to call us if he is not much better in the next week or so. Cellulitis of buttock - doxycycline (Vibra-Tabs) 100 MG tablet; Take 1 tablet (100 mg) by mouth 2 times daily for 10 days. Take with a full glass of water and do not lie down for at least 30 minutes after. Hypertension, unspecified type Comments: Continue current medications. Recheck BMP. Orders: - CBC auto differential; Future - Basic Metabolic Panel; Future Anticoagulated Comments: Continue anticoagulation with Xarelto and recheck CBC. documented in this encounter Plan of Treatment Scheduled Orders Name Type Priority Associated Diagnoses Orde r Schedule CBC auto differential Lab Routine Hypertension, unspecified type Expected: 03/08/2025 (Approximate), Expires: 03/08/2026 Basic Metabolic Panel Lab Routine Hypertension, unspecified type Expected: 03/08/2025 (Approximate), Expires: 03/08/2026 documented as of this encounter Visit Diagnoses Diagnosis Pressure injury of buttock, stage 1, unspecified laterality- Primary Cellulitis of buttock Cellulitis and abscess of buttock Hypertension, unspecified type Anticoagulated Encounter for long-term (current) use of anticoagulants documented in this encounter Additional Health Concerns Assessment Noted Time PHQ-9 Depression Total Score: 0 04/17/20 24 3:31 PM EDT documented as of this encounter Care Teams Entry Level Software Developer Relationship Specialty Start Date End Date NameStephen MD [address] [place] [address] PCP - General Internal Medicine 04/29/23 documented as of this encounter
--- OUTSIDE RECORDS SUMMARY | 2025-03-08 14:08 | XMS_ITS | Encounter Summary ---
Author Organization [facility] Address [address] [facility] [address] [place] [address] Phone Care Team Providers Care Director Of Regulatory Affairs Name Role Phone Devaughn Ng MD Unavailable [phone] Billy Issa MD Unavailable [phone] Mil Rowe MD Unavailable [phone] Billy Issa MD Primary Care Provid er Encounter Details Date Type Department Care Team (Late st Contact Info) Description 12/13/2020 Procedure Pass Non-Invasive Cardiology [address] [place] [address] Social History Tobacco Use Types Packs/Day Years [...] on filedocumented in this encounter Care Teams Director Of Regulatory Affairs Relationship Specialty Start Date End Date Billy Issa MD [address] [facility] 1 [place] [phone] PCP - General 10/24/17 Devaughn Ng MD [email or web address] Historical LMR Provider 08/10/17 Billy Issa MD [address] [place] [address] 1 [place] [address] Historical LMR Provider 08/10/17 2 Mil Rowe MD [address] [place] [address] [email or web address] Historical LMR Provider 08/10/17 10/28/21 documented as of this encounter Additional Source Comments The information contained in this document represents components of the legal health record. It is not the complete legal health record.[facility]
--- OUTSIDE RECORDS SUMMARY | 2025-03-08 14:08 | XMS_ITS | Encounter Summary ---
Author Organization [employer] Address [address] [facility] 7 [place] [address] Care Team Providers Care Computer System Validation Specialist Name Role Phone Name, Stephen PADRON Primary Care Provider [phone] Reason for Visit * Reason Onset Date Comments CHART PREP 03/05/2025 Encounter Details Date Type Department Care Team ([facility] st Contact Info) Description 03/05/2025 Telephone [facility] MEDICINE [address] [place], [place] [phone] Asher Young [place] CHART PREP Social History Tobacco Use Types Packs/Day Years [...] encounter Miscellaneous Notes * Telephone Encounter - Asher Young [place] - 03/05/2025 2:21 PM EDT Chart Prep Labs: done Images: not done XR [id number]+ Referrals: not applicable Vaccines due: Covid, Tdap, Td, RSV, and DTAP Screenings: not applicable Overdue care gaps: ALISTAIR-7 documented in this encounter Plan of Treatment Not on file documented as of this encounter Visit Diagnoses Not on filedocumented in this encounter Additional Health Concerns Assessment Noted Time PHQ-9 Depression Total Score: 0 04/17/20 24 3:31 PM EDT documented as of this encounter Care Teams Computer System Validation Specialist Relationship Specialty Start Date End Date Name, MD Stephen [address] [place] [address] PCP - General Internal Medicine 04/29/23 documented as of this encounter
--- OUTSIDE RECORDS SUMMARY | 2025-03-08 14:08 | XMS_ITS | Clinical Summary ---
Author Organization [employer] Address [address] [place] [address] 7 [place] [address] Care Team Providers Care Work Ticket Distributor Name Role Phone Name, Stephen PADRON Primary Care Provider [phone] Allergies Active Allergy Reactions Criticality Noted Date Comments Dust Mite Extract 01/06/2018 Other reaction(s): Sneezing Gramineae Pollens 01/06/2018 Other reaction(s): Sneezing Medications Xarelto 20 MG tablet 04/07/20 23 Active losartan (Cozaar) 50 MG tablet Take 50 mg by mouth Once per day. 03/15/20 23 Active hydroCHLOROthi azide (HYDRODiuril) 25 MG tablet 04/19/20 23 Active atorvastatin (Lipitor) 40 MG tablet Take 40 mg by mouth Once per day. 02/24/20 23 Active amLODIPine (Norvasc) 5 MG tablet Take 5 mg by mouth Once per day. Active [facility] D3 25 MCG (1000 UT) capsule TAKE 1 CAPSULE (25 MCG) BY MOUTH ONCE PER DAY. 90 capsule 01/30/20 25 Active metoprolol succinate XL (Toprol-XL) 25 MG 24 hr tablet Take 25 mg by mouth. 05/07/20 24 025 Active doxycycline (Vibra-Tabs) 100 MG tabletIndicati ons:Cellulitis of buttock Take 1 tablet (100 mg) by mouth 2 times daily for 10 days. Take with a full glass of water and do not lie down for at least 30 minutes after. 20 tablet 03/08/20 25 025 Active carvedilol (Coreg) 3.125 MG tablet Take 3.125 mg by mouth in the morning and 3.125 mg in the evening. 02/17/20 23 025 Discontinued doxycycline (Vibra-Tabs) 100 MG tabletIndicati ons:Cellulitis of buttock Take 1 tablet (100 mg) by mouth 2 times daily for 10 days. Take with a full glass of water and do not lie down for at least 30 minutes after. 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 He has remote monitoring which we are checking to make sure that it is connected properly. We will follow-up with him in 1 year per his request. I have sent a refill for his anticoagulant. He is asymptomatic. Continue with current occasions. Bigeminy 12/11/2017 Hypertension 12/11/2017 Overview (04/29/2023): Last Assessment & Plan: His blood pressure today is elevated. He [...] prefer to follow this with his PCP. History of cardioembolic stroke 12/11/2017 Overview (04/29/2023): November 2017, [facility] Last Assessment & Plan: Continue anticoagulation. Palpitations 12/11/2017 Encounters Date Type Department Care Team Description 03/08/2025 1:00 PM EDT Office Visit [facility] [address] [place], [place] [address] [place] [address] Stephen Gallegos MD Pressure injury of buttock, stage 1, unspecified laterality (Primary Dx); Cellulitis of buttock; Hypertension, unspecified type; Anticoagulated 03/08/2025 Travel 03/05/[address] [address] Asher Young [place] CHART PREP 02/02/[address] [address] Asher Young [place] Appointment Request 02/02/[address] [address] Stephen Gallegos MD Appointment Request 01/29/[address] [address] Stephen Gallegos MD from Last 3 Months Immunizations Immunization Administration Dates Next Due Influenza High-dose Quadriva lent Preservative Free 07/31/2023,07/23/2022 Influenza Quadrivalent Adjuvanted 07/07/2021 Influenza, High Dose Seasona l, Preservative Free 07/20/2024,07/15/2019,08/08/2018,2016,08/08/2016 Moderna Covid-19 Vaccine 12+ 12/06/2020 Pfizer Covid-19 Vaccine 12+ 07/20/2024, Pneumococcal Conjugate PCV 20 01/01/2024 Zoster, Recombinant 04/01/2018,02/01/2018 Social History Tobacco Use Types Packs/Day Years [...] Orientation Straight 04/03/2023 10 :36 AM EDT Last Filed Vital Signs Vital Sign Reading Time Taken Comments Blood Pressure 147/75 03/08/2025 1:14 PM EDT Pulse 98 03/08/2025 1:14 PM EDT Temperature 36.7 ??C (98.1 ??F) 03/08/2025 1:14 PM ED T Respiratory Rate 12 03/08/2025 1:14 PM EDT Oxygen Saturation 93% 03/08/2025 1:14 PM EDT Inhaled Oxygen Concentration - - Weight 103 kg (228 lb) 03/08/2025 1:14 PM EDT Height 175.3 cm (5' 9 ) 07/20/2024 2:46 PM EDT Body Mass Index 33.67 07/20/2024 2:46 PM EDT Plan of Treatment Health Maintenance Due Date Last Done Comments DTaP/Tdap/Td Vaccines (1 - Tdap) 1959 RSV Patients and Patients Aged 60 years or older (1 - 1-dose 75+ series) 2015 COVID-19 Vaccine ( season) 2025 07/20/2024, 09/26/2023, 07/23/2022, Additional history exists Alcohol/Substance Use Screening 04/17/2025 04/17/2024 Depression Screening 04/17/2025 04/17/2024, 04/17/20 24 SDOH Screening 04/17/2025 04/17/2024 Tobacco Screening 03/08/2026 03/08/2025 Lipid Panel 12/31/2028 01/01/2024 Zoster Vaccines Completed 04/01/2018, 02/01/2018 Pneumococcal Vaccine: 50+ Years Completed 01/01/2024 Influenza Vaccine Completed 07/20/2024, , 07/23/2022, Additional history exists HIB Vaccines Aged Out No longer eligi ble based on patient's age to complete this topic HPV Vaccines Aged Out No longer eligi ble based on patient's age to complete this topic Hepatitis A Vaccines Aged Out No long er eligible based on patient's age to complete this topic Hepatitis B Vaccines Aged Out No long er eligible based on patient's age to complete this topic IPV Vaccines Aged Out No longer eligi ble based on patient's age to complete this topic Meningococcal B Vaccine Aged Out No l onger eligible based on patient's age to complete this topic Meningococcal Vaccine Aged Out No logan сергей eligible based on patient's age to complete this topic RSV under 20 months Aged Out No longe r eligible based on patient's age to complete this topic Rotavirus Vaccines Aged Out No longer eligible based on patient's age to complete this topic Procedures Procedure Name Priority Date/Time Associated Diagnosis Comments LIPID PANEL, STANDARD Routine 01/01/2024 4:08 PM EDT Hypertension, unspecified type Hyperlipidemia, unspecified hyperlipidemia type Anticoagulated from Last 3 Months or Most Recently Relevant to Health Maintenance Results * Lipid Panel, Standard (01/01/2024 4:08 PM EDT) Triglycerides 90 <150 mg/dL [facility] Comment:Desirable Triglyceri de: less than 150 mg/dLBorderline High Triglyceride 150-199 mg/dLHigh Triglyceride: 200-499 mg/dLVery High Triglyceride: greater than or equal to 5OO mg/dL Cholesterol 141 <200 mg/dL [facility] Comment:Desirable Cholestero l: less than 200 mg/dLBorderline High Cholesterol: 200-239 mg/dLHigh Cholesterol: greater than 239 mg/dL LDL Cholesterol Calculated 70 <100 mg/dL [facility] Comment:Desirable LDL: less than 100 mg/dLNear Optimal/Above Optimal LDL: 110- 129 mg/dLBorderline High LDL: 130-159 mg/dLHigh LDL: 160-189 mg/dLVery High LDL: greater than or equal to 190 mg/dL HDL Cholesterol 53 >40 mg/dL [facility] Comment:Desirable HDL: great er than 40 mg/dL Note: This HDL assay may give artificially low results in patients with liver disease. Blood Venous blood specimen / Unknown 01/01/2024 4:08 PM EDT 01/01/2024 5:40 PM EDT us Stephen Name LAB BLOOD ORDERABLES Final Resul t [facility] [address] [place] [phone] from Last 3 Months or Most Recently Relevant to Health Maintenance Insurance MEDICARE UN[employer] Care Teams Work Ticket Distributor Relationship Specialty Start Date End Date Name, MD Stephen [address] [place] [address] PCP - General Internal Medicine 04/29/23
--- OUTSIDE RECORDS SUMMARY | 2025-03-08 14:08 | XMS_ITS | Encounter Summary ---
Author Organization [employer] Address [address] [place] [address] 7 [place] [address] Care Team Providers Care Gang Supervisor Pipe Lines Name Role Phone Name, Stephne PADRON Primary Care Provider [phone] Reason for Visit * Reason Onset Date Comments FYI 05/26/2024 Encounter Details Date Type Department Care Team ([facility] Contact Info) Description 05/26/2024 Telephone [facility] [address] [place], [place] [id number] Name, MD Stephen [address] [place] [address] FYI Social History Tobacco Use Types Packs/Day Years [...] Recorded Patient Health Questionnaire-2 Score 0 04/17/2024 Sex and Gender Information Value Date Recorded Sex Assigned at Male 04/03/2023 10:36 AM EDT Legal Sex Male 10:33 AM EDT Gender Identity Male 04/03/2023 10:36 AM EDT Sexual Orientation Straight 04/03/2023 10 :36 AM EDT documented as of this encounter Miscellaneous Notes * Telephone Encounter - Brissa Eng RN - 05/26/2024 2:16 PM EDT FYI * Telephone Encounter - Dom Zuniga - 05/26/2024 2:01 PM EDT [facility] inform pcp pt was assigned with PT but denied OT. If any questions you can contact Sabi at [phone]. documented in this encounter Plan of Treatment Not on file documented as of this encounter Visit Diagnoses Not on filedocumented in this encounter Additional Health Concerns Assessment Noted Time PHQ-9 Depression Total Score: 0 04/17/20 24 3:31 PM EDT documented as of this encounter Care Teams Gang Supervisor Pipe Lines Relationship Specialty Start Date End Date Name, MD Stephen [address] [place] [address] PCP - General Internal Medicine 04/29/23 documented as of this encounter
--- OUTSIDE RECORDS SUMMARY | 2025-03-08 14:08 | XMS_ITS | Encounter Summary ---
Author Organization [facility] Address [address] [facility] [address] [place] [address] Phone Care Team Providers Care Clipper Machine Operator Name Role Phone Devaughn Ng MD Unavailable Billy Issa MD Unavailable [phone] Mil Rowe MD Unavailable [phone] Billy Issa MD Primary Care Provid er Encounter Details Date Type Department Care Team (Late st Contact Info) Description 01/10/2018 Procedure Pass [facility] [address] [place] [address] Social History Tobacco Use Types Packs/Day Years [...] on filedocumented in this encounter Care Teams Clipper Machine Operator Relationship Specialty Start Date End Date Billy Issa MD [address] [facility] 1 [place] [phone] PCP - General 10/24/17 Devaughn Ng MD [email or web address] Historical LMR Provider 08/10/17 Billy Issa MD [address] [place] [address] 1 [place] [phone] Historical LMR Provider 08/10/17 2 Mil Rowe MD [address] [place] [address] [email or web address] Historical LMR Provider 08/10/17 10/28/21 documented as of this encounter Additional Source Comments The information contained in this document represents components of the legal health record. It is not the complete legal health record.[facility]
[2025-03-08 16:07] LABS: MANUAL DIFF FLAG NO
[2025-03-08 16:16] LABS: Basophils Percent Auto 0.5 % (0-2); Eosinophils Absolute Auto 0.1 X10*3/uL (0.0-0.4); Eosinophils Percent Auto 1.5 % (0-4); Hematocrit 46.6 % (42.0-52.0); Hemoglobin 15.6 g/dl (14.0-18.0); Imm Gran Abs Auto 0.02 X10*3/uL (0.00-0.03); Imm Gran Pct Auto 0.2 % (0.0-0.4); Lymphocytes Absolute Auto 1.2 X10*3/uL (1.2-4.9); Lymphocytes Percent Auto 14.3 % (20-40); Mean Corpuscular HGB Conc 33.5 g/dl (31.0-36.0); Mean Corpuscular Volume 92.6 fL (80.0-98.0); Mean Platelet Volume 9.5 fL (9.4-12.4); Monocytes Absolute Auto 0.8 X10*3/uL (0.1-1.2); Monocytes Percent Auto 9.8 % (2-11); Neutrophils Percent Auto 73.7 % (45-73); Platelet Count 242 X10*3/uL (160-400); Red Blood Count 5.03 X10*6/uL (4.60-5.80); Red Cell Distribution Width 13.6 % (11.0-16.0); White Blood Count 8.2 X10*3/uL (4.8-10.8)
[2025-03-08 16:54] LABS: Anion Gap 17 (12-20); Blood Urea Nitrogen 23 mg/dL (9-16); Calcium 9.6 mg/dL (8.4-10.2); Carbon Dioxide 22 mmol/L (22-29); Chloride 105 mmol/L (96-108); Estimated Glomerular Filt Rate > 60; Glucose Random 85 mg/dL (60-115); Potassium 3.5 mmol/L (3.3-5.1); Sodium 140 mmol/L (135-145)
== END 2025-03-08 14:02 | disposition home or self-care (01) ==
LOC: HO.HHCL 14:01
PROVIDERS: Visit Provider Internal Medicine Geriatric Medicine
DX: I10 Essential (primary) hypertension (principal)
CPT/HCPCS: 36415; 80048; 85025

== ENCOUNTER 2025-08-18 15:25 | Outpatient (REF) | payer MEDICARE, OTHER, SELFPAY ==
--- NOTE | ~2025-08-18 | XR_ITS ---
EXAMINATION: XR HIP, RIGHT CLINICAL INFORMATION: Chronic right hip pain COMPARISON: None available. TECHNIQUE: Two views of the right hip. FINDINGS: Bone alignment is normal. No fracture or dislocation. Mild generative changes with joint space narrowing and small osteophyte. Question increased increased trabeculation of the visualized left pubic symphysis. Soft tissues are unremarkable. 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 Question increased trabeculation of the left pubic symphysis. This could be better evaluated with pelvis x-ray clinically warranted. Electronically signed by: Heather Webster MD 08/18/2025 04:47 PM EDT
--- OUTSIDE RECORDS SUMMARY | 2025-08-18 14:00 | XMS_ITS | Encounter Summary ---
Author Organization [employer] Address [address] [place] [address] 7 [place] [address] Care Team Providers Care Wheel Filler Name Role Phone Name, Stephen PADRON Primary Care Provider [phone] Reason for Visit * Reason Comments Follow-up Encounter Details Date Type Department Care Team ([facility] st Contact Info) Description 08/18/2025 2:00 PM EDT Office Visit [facility] [address] [place], [place] [phone] Name, MD Stephen [address] [place] [address] Hypertension, unspecified type (Primary Dx); Paroxysmal atrial fibrillation (CMS/HCC) (HCC); Chronic right hip pain; Tinea corporis; Encounter for immunization; Encounter for vaccination Social History Tobacco Use Types Packs/Day Years [...] Answer Date Recorded Patient Health Questionnaire-9 Score 4 08/18/2025 Patient Health Questionnaire-9 Score 4 08/18/2025 Last PHQ-9: Questionnaire Data Not on file 1 Housing Stability Answer Date Recorded What is your housing situation today? I have nena nava 08/18/[address] you li ve. Do you have problems with any of the following? None of the above 08/18/2025 Food Insecurity Answer Date Recorded Within the past 12 months, y ou worried that your food would run out before you got money to buy more: Never True 08/18/2025 Within the past 12 months,th e food you bought just didn't last and you didn't have enough money to get more: Never True Transportation Answer Date Recorded In the past 12 months, has l ack of transportation kept you from medical appts, meetings, work or from getting things needed for daily living? No 08/18/2025 Utilities Answer Date Recorded In the past 12 months, has t he electric, gas, oil or water company threatened to shut off services in your home? No 08/18/2025 Depression Answer Date Recorded Patient Health Questionnaire-2 Score 2 08/18/2025 Internet Access Answer Date Recorded Internet Access [...] Sign Reading Time Taken Comments Blood Pressure 152/84 08/18/2025 2:25 PM EDT Pulse 79 08/18/2025 2:25 PM EDT Temperature 36.8 C (98.3 F) 08/18/2025 2:25 PM EDT Respiratory Rate 18 08/18/2025 2:25 PM EDT Oxygen Saturation 93% 08/18/2025 2:25 PM EDT Inhaled Oxygen Concentration - - Weight 100 kg (220 lb 12.8 oz) 08/18/2025 2:25 P M EDT Height 175.3 cm (5' 9 ) 08/18/2025 2:25 PM EDT Body Mass Index 32.61 08/18/2025 2:25 PM EDT documented in this encounter Functional Status * Over the past 2 weeks, how often have you been bothered by any of the following problems? Question Answer Date of Assessment Author Patient Health Questionnaire -2 Score 2 08/18/2025 2:28 PM EDT Katiuska Young MA * Little interest or pleasure in doing things Answer Date of Assessment Author Several days 08/18/2025 2:28 PM EDT Asher Young [place] * Feeling down, depressed, or hopeless Answer Date of Assessment Author Several days 08/18/2025 2:28 PM EDT Asher Young [place] * Trouble falling or staying asleep, or sleeping too much Answer Date of Assessment Author More than half the days 08/18/2025 2:28 PM EDT Asher Lucero MA * Feeling tired or having little energy Answer Date of Assessment Author Not at all 08/18/2025 2:28 PM EDT Asher Young [place] * Poor appetite or overeating Answer Date of Assessment Author Not at all 08/18/2025 2:28 PM EDT Asher Young MA * Feeling bad about yourself - or that you are a failure or have let yourself or your family down Answer Date of Assessment Author Not at all 08/18/2025 2:28 PM EDT Asher Young MA * Trouble concentrating on things, such as reading the newspaper or watching television Answer Date of Assessment Author Not at all 08/18/2025 2:28 PM EDT Asher Young MA * Moving or speaking so slowly that other people could have noticed? Or the opposite - being so fidgety or restless that you have been moving around a lot more than usual. Answer Date of Assessment Author Not at all 08/18/2025 2:28 PM EDT Asher Young MA * Thoughts that you would be better off or hurting yourself in some way Answer Date of Assessment Author Not at all 08/18/2025 2:28 PM Asher Lee MA * Patient Health Questionnaire-9 Score Answer Date of Assessment Author 4 08/18/2025 2:28 PM BLAIRT Asher Young MA * Over the last 2 weeks, how often have you been bothered by any of the following problems? Question Answer Date of Assessment Author Feeling nervous, anxious, or on edge 1 08/18/2025 2:28 PM EDT Katiuska Young MA Not being able to stop or control worrying 1 08/18/2025 2:28 PM EDT Katiuska Young MA Worrying too much about different things 1 08/18/2025 2:28 PM EDT Katiuska Young MA Trouble relaxing 1 08/18/2025 2:28 PM EDT Asher Lucero MA Being so restless that it is hard to sit still 0 08/18/2025 2:28 PM EDT Katiuska Young MA Becoming easily annoyed or irritable 1 08/18/2025 2:28 PM EDT Katiuska Young MA Feeling afraid as if somethi ng awful might happen 0 08/18/2025 2:28 PM EDT Katiuska Young MA ALISTAIR-7 Total Score 5 08/18/2025 2:28 PM EDT Asher Young MA documented as of this encounter Progress Notes * Stephen Gallegos MD - 08/18/2025 2:00 PM EDT Subjective Patient ID: Devaughn Rebolledo is a 84 y.o. male who presents for Follow-up. Patient comes for a follow-up visit. He is accompanied by a friend/INFRASTRUCTURE TECHNICIAN. We discussed several issues. He complains of several months of right hip pain. He describes pain in the right groin area that is sometimes severe. Pain is precipitated by weightbearing activities. Pain is relieved by the use ofTylenol. He denies any recent falls, no swelling of the right hip area. BP was slightly elevated. His BP is usually normal at home and he uses his losartan/HCTZ and metoprolol daily as prescribed. He is not having any problems tolerating his current dose of Xarelto. The patient is mostly wheelchair-bound after his stroke. He can still walk short distances around the house, he has difficulties with stairs. On previous visit he had a stage I decubitus ulcer in thesacral area. The patient has been trying to change positions regularly while sitting. Review of Systems Constitutional: Negative for chills, fatigue and fever. HENT: Negative for sore throat. Respiratory: Negative for cough, chest tightness and shortness of breath. Cardiovascular: Negative for chest pain, palpitations and leg swelling. Gastrointestinal: Negative for abdominal pain and blood in stool. Musculoskeletal: See HPI Objective Vitals: 08/18/25 1425 BP: (!) 152/84 BP Location: Left arm Patient Position: Sitting BP Cuff Size: Adult Pulse: 79 Resp: 18 Temp: 98.3 ??F (36.8 ??C) TempSrc: Temporal SpO2: 93% Weight: 220 lb 12.8 oz (100 kg) Height: 5' 9 (1.753 m) Physical Exam Constitutional: Appearance: Normal appearance. Cardiovascular: Rate and Rhythm: Normal rate and regular rhythm. Heart sounds: No murmur heard. Pulmonary: Effort: Pulmonary effort is normal. No respiratory distress. Breath sounds: No wheezing, rhonchi or rales. Abdominal: Palpations: Abdomen is soft. Tenderness: There is no abdominal tenderness. Musculoskeletal: Right lower leg: No edema. Left lower leg: No edema. Skin: Comments: Redness of the skin of the sacral area, no open skin, no crusting Neurological: Mental Status: He is alert. Assessment/Plan Diagnoses and all orders for this visit: Hypertension, unspecified type Comments: Continue current medications. 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 I recommended to continue Tylenol 3 times a day. Check right hip x-ray. Orders: - XR Hip 2 or 3 Views Right; Future Tinea corporis Comments: I suspect he has tinea corporis on the sacral area. I recommended fluconazole 150 mg once a week for 2 weeks. He has difficulties applying topical clotrimazole to the affected area because of his neurological deficits Encounter for immunization - FLU VACCINE TRIVALENT HIGH DOSE [id number] (Fluzone) 65 yrs + Encounter for vaccination - COVID-19 VACCINE [id number] (Comirnaty) 19 yrs + Other orders - fluconazole (Diflucan) 150 MG tablet; Take 1 tablet (150 mg) by mouth 1 (one) time per week for 14 days. documented in this encounter Plan of Treatment Not on file documented as of this encounter Procedures Procedure Name Priority Date/Time Associated Diagnosis Comments XR HIP 2 OR 3 VIEWS RIGHT Routine 08/18/2025 4:25 PM EDT Chronic right hip pain documented in this encounter Results * XR Hip 2 or 3 Views Right (08/18/2025 4:25 PM EDT) Anatomical Region Laterality Modality Lower Extremities, Hip Right Radiograp hic Imaging 08/18/2025 4:25 PM EDT Narrative 08/18/2025 4:50 PM EDT [address] [address] XRay Report Signed Patient: Devaughn Rebolledo MR#: [id number] 7 : 1940 Acct:[id number] Age/Sex: 84 / M ADM Date: 08/18/25 Loc: HO.HHCX Attending Dr: Stephen Gallegos MD Ordering Physician: Stephen Gallegos MD Date of Service: 08/18/25 Procedure(s): XR hip RT min 2V Accession Number(s): [id number] cc: Stephen Gallegos MD Reason for Exam: Chronic right hip pain EXAMINATION: XR HIP, RIGHT CLINICAL INFORMATION: Chronic right hip pain COMPARISON: None available. TECHNIQUE: Two views of the right hip. FINDINGS: Bone alignment is normal. No fracture or dislocation. Mild generative changes with joint space narrowing and small osteophyte. Question increased increased trabeculation of the visualized left pubic symphysis. Soft tissues are unremarkable. 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 Question increased trabeculation of the left pubic symphysis. This could be better evaluated with pelvis x-ray clinically warranted. Electronically signed by: Heather Webster MD 08/18/2025 04:47 PM EDT RP Dictated By: Heather Webster MD Signed By: <Electronically signed by eHather Webster MD in OV> 08/18/25 1647 DD/ 1625 TD/TT: 08/18/25 1628 Certified Scrub Tech: PARTHA Procedure Note Donotuseinterpreter, Image - 08/18/[address] [address] XRay Report Signed Patient: Devaughn Rebolledo JMR#: [id number] 7 : 1Acct:[id number] Age/Sex: 84 / MADM Date: 08/18/25 Loc: HO.HHCX Attending Dr: Stephen Gallegos MD Ordering Physician: Stephen Gallegos MD Date of Service: 08/18/25 Procedure(s): XR hip RT min 2V Accession Number(s): [id number] cc: Stephen Gallegos MD Reason for Exam: Chronic right hip pain EXAMINATION: XR HIP, RIGHT CLINICAL INFORMATION: Chronic right hip pain COMPARISON: None available. TECHNIQUE: Two views of the right hip. FINDINGS: Bone alignment is normal. No fracture or dislocation. Mild generative changes with joint space narrowing and small osteophyte. Question increased increased trabeculation of the visualized left pubic symphysis. Soft tissues are unremarkable. 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 Question increased trabeculation of the left pubic symphysis. This could be better evaluated with pelvis x-ray clinically warranted. Electronically signed by: Heather Webster MD 08/18/2025 04:47 PM EDT Dictated By: Heather Webster MD Signed By: <Electronically signed by Heather Webster MD in OV> 08/18/251646 DD/ 1625 TD/TT: 08/18/25 1628 Certified Scrub Tech: PARTHA Stephen Gallegos MD IMG XR PROCEDURES Final Result documented in this encounter Visit Diagnoses Diagnosis Hypertension, unspecified type- Primary Paroxysmal atrial fibrillation (CMS/HCC) (HCC) Atrial fibrillation Chronic right hip pain Tinea corporis Dermatophytosis of the body Encounter for immunization Encounter for vaccination documented in this encounter Additional Health Concerns Assessment Noted Time PHQ-9 Depression Total Score: 4 10/29/20 25 2:28 PM EDT documented as of this encounter Care Teams Wheel Filler Relationship Specialty Start Date End Date Name, MD Stephen [address] [place] [address] PCP - General Internal Medicine 04/29/23 documented as of this encounter
--- OUTSIDE RECORDS SUMMARY | 2025-08-18 19:45 | XMS_ITS | Encounter Summary ---
Author Organization [facility] Address [address] [facility] [address] [place] [address] Phone Care Team Providers Care Linking Machine Operator Name Role Phone Devaughn Ng MD Unavailable Billy Issa MD Unavailable [phone] PerMil veliz MD Unavailable [phone] Billy Issa MD Primary Care Provid er Encounter Details Date Type Department Care Team (Late st Contact Info) Description 12/27/2017 Procedure Pass [facility] [address] [place] [address] Social History Tobacco Use Types Packs/Day Years [...] on filedocumented in this encounter Care Teams Linking Machine Operator Relationship Specialty Start Date End Date Billy Issa MD [address] [facility] [address] [place] [address] PCP - General 10/24/17 Devaughn Ng MD [email or web address] Historical LMR Provider 08/10/17 Billy Issa MD [address] [facility] 1 [place] [address] Historical LMR Provider 08/10/17 2 Mil Rowe MD [address] [place] [address] [email or web address] Historical LMR Provider 08/10/17 10/28/21 documented as of this encounter Additional Source Comments The information contained in this document represents components of the legal health record. It is not the complete legal health record.[facility]
--- OUTSIDE RECORDS SUMMARY | 2025-08-18 19:45 | XMS_ITS | Encounter Summary ---
Author Organization [employer] Address [address] [facility] 7 [place] [address] Care Team Providers Care Furniture Mover Name Role Phone Name, Stephen PADRON Primary Care Provider [phone] Reason for Visit * Reason Onset Date Comments Appointment Request 02/02/2025 Encounter Details Date Type Department Care Team ([facility] Contact Info) Description 02/02/2025 Telephone [facility] [address] [place], [place] [phone] Name, MD Stephen [address] [place] [address] Appointment Request Social History Tobacco Use Types [...] Tuesdays and Fridays Afternoon. Contact pt at [phone] documented in this encounter Plan of Treatment Not on file documented as of this encounter Visit Diagnoses Not on filedocumented in this encounter Additional Health Concerns Assessment Noted Time PHQ-9 Depression Total Score: 0 04/17/20 24 3:31 PM EDT documented as of this encounter Care Teams Furniture Mover Relationship Specialty Start Date End Date Name, MD Stephen [address] [place] [address] PCP - General Internal Medicine 04/29/23 documented as of this encounter
--- OUTSIDE RECORDS SUMMARY | 2025-08-18 19:45 | XMS_ITS | Clinical Summary ---
Author Organization [employer] Address [address] [place] [address] 7 [place] [address] Care Team Providers Care Shoulder Joiner Name Role Phone Name, Stephen PADRON Primary Care Provider [phone] Allergies Active Allergy Reactions Criticality Noted Date Comments Dust Mite Extract 01/06/2018 Other reaction(s): Sneezing Gramineae Pollens 01/06/2018 Other reaction(s): Sneezing Medications Xarelto 20 MG tablet 04/07/2023 Active losartan (Cozaar) 50 MG tablet Take 50 mg by mouth Once per day. 03/15/2023 Active hydroCHLOROthia zide (HYDRODiuril) 25 MG tablet 04/19/2023 Active atorvastatin (Lipitor) 40 MG tablet Take 40 mg by mouth Once per day. 02/23/2023 Active amLODIPine (Norvasc) 5 MG tablet Take 5 mg by mouth Once per day. Active [facility] D3 25 MCG (1000 UT) capsule TAKE 1 CAPSULE (25 MCG) BY MOUTH ONCE PER DAY. 90 capsule 01/29/2025 Active metoprolol succinate XL (Toprol-XL) 25 MG 24 hr tablet Take 25 mg by mouth. 05/07/2024 Active fluconazole (Diflucan) 150 MG tablet Take 1 tablet (150 mg) by mouth 1 (one) time per week for 14 days. 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 Palpitations 12/11/2017 Encounters Date Type Department Care Team Description 08/18/2025 2:00 PM EDT Office Visit [facility] [address] [place] [address] Name, MD Stephen Hypertension, unspecified type (Primary Dx); Paroxysmal atrial fibrillation (CMS/HCC) (HCC); Chronic right hip pain; Tinea corporis; Encounter for immunization; Encounter for vaccination 08/18/2025 Travel 08/13/2025 Travel 05/21/2025 Telephone [facility] [address] [place] [address] Asher Young [place] june recall from Last 3 Months Immunizations Immunization Administration Dates Next Due Influenza High-dose Quadriva lent Preservative Free 07/31/2023,07/23/2022 Influenza Quadrivalent Adjuvanted 07/07/2021 Influenza, High Dose Seasona l, Preservative Free 08/18/2025,07/20/2024,07/15/2019,2017,07/31/2017,08/08/2016 Moderna Covid-19 Vaccine 12+ 12/06/2020 Pfizer Covid-19 Vaccine 12+ 08/18/2025,,12/06/2020 Pneumococcal Conjugate PCV 20 01/01/2024 RSV Bivalent 03/08/2025 Zoster, Recombinant 04/01/2018,02/01/2018 Social History Tobacco Use [...] Mass Index 32.61 08/18/2025 2:25 PM EDT Plan of Treatment Health Maintenance Due Date Last Done Comments DTaP/Tdap/Td Vaccines (1 - Tdap) 1959 SDOH Screening 04/17/2025 04/17/2024 Alcohol/Substance Use Screening 08/18/2026 08/18/2025 Depression Screening 08/18/2026 08/18/2025, 08/18/20 25 Tobacco Screening 08/18/2026 08/18/2025 Lipid Panel 12/31/2028 01/01/2024 Zoster Vaccines Completed 04/01/2018, 02/01/2018 Pneumococcal Vaccine: 50+ Years Completed 01/01/2024 RSV Patients and Patients Aged 60 years or older Completed 03/08/2025 COVID-19 Vaccine Completed 08/18/2025, , 09/26/2023, Additional history exists Influenza Vaccine Completed 08/18/2025, , 07/31/2023, Additional history exists HIB Vaccines Aged Out [...] 4:25 PM EDT Chronic right hip pain LIPID PANEL, STANDARD Routine 01/01/2024 4:08 PM EDT Hypertension, unspecified type Hyperlipidemia, unspecified hyperlipidemia type Anticoagulated from Last 3 Months or Most Recently Relevant to Health Maintenance Results * XR Hip 2 or 3 Views Right (08/18/2025 4:25 PM EDT) Anatomical Region Laterality Modality Lower Extremities, Hip Right Radiograp hic Imaging 08/18/2025 4:25 PM EDT Narrative 08/18/2025 4:50 PM EDT [address] [address] XRay Report Signed Patient: Devaughn Rebolledo MR#: [id number] 7 : 1940 Acct:[id number] Age/Sex: 84 / M ADM Date: 08/18/25 [facility]: Stephen Gallegos MD Ordering Physician: Name,Stephen MD Date of Service: 08/18/25 Procedure(s): XR hip RT min 2V Accession Number(s): [id number] cc: Stephen Gallegos MD Reason for Exam: [...] signed by Heather Webster MD in OV> 08/18/25 1647 DD/ 1625 TD/TT: 08/18/25 1628 Associate Dentist: PARTHA Procedure Note Donotuseinterpreter, Image - 08/18/2025 [place] [address] XRay Report Signed Patient: Devaughn Rebolledo JMR#: [id number] 7 : 1940cct:[id number] Age/Sex: 84 / MADM Date: 08/18/25 Loc: [facility] Attending Dr: Stephen Gallegos MD Ordering Physician: Stephen Gallegos MD Date of Service: 08/18/25 Procedure(s): XR hip RT min 2V Accession Number(s): [id number] cc: Stephen Gallegos MD Reason for Exam: [...] signed by Heather Webster MD in OV> 08/18/25 1647 DD/ 1625 TD/TT: 08/18/25 1628 Associate Dentist: PARTHA us Stephen Gallegos MD IMG XR PROCEDURES Final Result * Lipid Panel, Standard (01/01/2024 4:08 PM EDT) Triglycerides 90 <150 mg/dL [facility] Comment:Desirable Triglyceri de: less than 150 mg/dLBorderline High Triglyceride 150-199 mg/dLHigh Triglyceride: 200-499 mg/dLVery High Triglyceride: greater than or equal to 5OO mg/dL Cholesterol 141 <200 mg/dL [facility] Comment:Desirable Cholestero l: less than 200 mg/dLBorderline High Cholesterol: 200-239 mg/dLHigh Cholesterol: greater than 239 mg/dL LDL Cholesterol Calculated 70 <100 mg/dL [facility] Comment:Desirable LDL: less than 100 mg/dLNear Optimal/Above Optimal LDL: 110- 129 mg/dLBorderline High LDL: 130-159 mg/dLHigh LDL: 160-189 mg/dLVery High LDL: greater than or equal to 190 mg/dL HDL Cholesterol 53 >40 mg/dL [facility] Comment:Desirable HDL: great er than 40 mg/dL Note: This HDL assay may give artificially low results in patients with liver disease. Blood Venous blood specimen / Unknown 01/01/2024 4:08 PM EDT 01/01/2024 5:40 PM EDT us Stephen Gallegos MD LAB BLOOD ORDERABLES Final Resul t [facility] [address] [place] [address] [phone] from Last 3 Months or Most Recently Relevant to Health Maintenance Insurance MEDIC[place] [address] [place] [phone] [facility] Care Teams Shoulder Joiner Relationship Specialty Start Date End Date Name, MD Stephen [address] [place] [address] PCP - General Internal Medicine 04/29/23
--- OUTSIDE RECORDS SUMMARY | 2025-08-18 19:45 | XMS_ITS | Encounter Summary ---
Author Organization [employer] Address [address] [place] [address] 7 [place] [address] Care Team Providers Care Auto Design Detailer Name Role Phone Name, Stephen PADORN Primary Care Provider [phone] Reason for Visit * Reason Onset Date Comments FYI 05/26/2024 Encounter Details Date Type Department Care Team ([facility] Contact Info) Description 05/26/2024 Telephone [facility] [address] [place], [place] [phone] Name, MD Stephen [address] [place] [address] FYI Social History Tobacco Use Types Packs/Day [...] 2:01 PM EDT [facility] inform pcp pt was assigned with PT but denied OT. If any questions you can contact Sabi at [phone]. documented in this encounter Plan of Treatment Not on file documented as of this encounter Visit Diagnoses Not on filedocumented in this encounter Additional Health Concerns Assessment Noted Time PHQ-9 Depression Total Score: 0 04/17/20 24 3:31 PM EDT documented as of this encounter Care Teams Auto Design Detailer Relationship Specialty Start Date End Date Name, MD Stephen [address] [place] [address] PCP - General Internal Medicine 04/29/23 documented as of this encounter
--- OUTSIDE RECORDS SUMMARY | 2025-08-18 19:45 | XMS_ITS | Clinical Summary ---
Author Organization [facility] Address [address] [facility] [address] [place] [address] Phone Care Team Providers Care Mannequin Mold Maker Name Role Phone Devaughn Ng MD Unavailable [phone] Billy Issa MD Primary Care Provid er [...] cardioembolic stroke 12/11/2017 Overview (12/11/2017): November 2017, [facility] Assessment & Plan (12/04/2019 4:40 PM [...] Answer Date Recorded No 03/16/2023 No 03/16/2023 Reliable internet access [...] 92 12/04/2019 4:09 PM EST Temperature 36.8 C (98.2 F) 01/10/2018 7:00 AM EDT Respiratory Rate 12 01/10/2018 7:00 AM EDT [...] VACCINE (1 - 1-dose 75+ series) 2015 INFLUENZA VACCINE (#1) 2025 9, 08/08/2018, 07/31/2017, Additional history exists COVID-19 VACCINE ( season) 2025 01/03/2021, 12/06/2020 ZOSTER VACCINES Completed 04/01/2018, 02/01/2018 [...] this topic Medical Devices Implanted Type Area Earth Burner Device Identifier Shelf Expiration Date Model / Serial / Lot Reveal Linq Loop Recorder System - [id number] Implanted:Qty : 1 on 01/10/2018 by Devaughn Ng MD at [facility] Implantable Monitor [employer] [id number] 09/17/2018 [id number] / [id number] S / Insurance MEDICARE PART A & B MEDICARE SUPPLEMENT MEDICARE PART A & B Member Subscriber Plan / Payer (Ef fective 2013-Present) Name:Devaughn Rebolledo Member ID:[id number] Relation to Subscriber:Self Name:Devaughn Rebolledo Subscriber ID:[id number] Payer ID:[id number] Group ID:Not on file Type:Medicare Address: [place] [address] [facility] MEDICARE SUPPLEMENT MEDICARE PART A & B [facility] MEDICARE SUPPLEMENT MEDICARE PART A & [place] [address] [place] [address] MEDICARE SUPPLEMENT MEDICARE PART A & B [facility] MEDICARE SUPPLEMENT MEDICARE PART A & B [employer] MEDICARE SUPPLEMENT MEDICARE PART A & B MEDICARE SUPPLEMENT MEDICARE PART A & B [employer] MEDICARE SUPPLEMENT MEDICARE PART A & B [employer] EXTENSION MEDICARE SUPPLEMENT Advance Directives For more information, please contact: [phone] (9AM - 5PM Edith/[facility], Saturday-Saturday) * Full Code (Presumed) (Latest Code Status on File) Date Activated Date Inactivated Comments 01/10/2018 7:46 AM 01/11/2018 4:14 AM Care Teams Mannequin Mold Maker Relationship Specialty Start Date End Date Billy Issa MD [address] [place] [phone] PCP - General 10/24/17 Devaughn Ng MD [email or web address] Historical LMR Provider 08/10/17 Additional Source Comments The information contained in this document represents components of the legal health record. It is not the complete legal health record.[facility]
--- OUTSIDE RECORDS SUMMARY | 2025-08-18 19:45 | XMS_ITS | Encounter Summary ---
Author Organization [employer] Address [address] [facility] 7t [place] [address] Care Team Providers Care Credit Representative Name Role Phone Name, Stephen PADRON Primary Care Provider [phone] Reason for Visit * Reason Comments Med Refill Encounter Details Date Type Department Care Team ([facility] st Contact Info) Description 09/05/2024 Refill [facility] [address] [place], [place] [phone] Name, MD Stephen [address] [place] [address] Social History Tobacco Use Types Packs/Day Years [...] documented as of this encounter Care Teams Credit Representative Relationship Specialty Start Date End Date Name, MD Stephen [address] [place] [address] PCP - General Internal Medicine 04/29/23 documented as of this encounter
--- OUTSIDE RECORDS SUMMARY | 2025-08-18 19:46 | XMS_ITS | Encounter Summary ---
Author Organization [employer] Address [address] [facility] 7t [place] [address] Care Team Providers Care Capacitor Assembler Name Role Phone Name, Stephen PADRON Primary Care Provider [phone] Encounter Details Date Type Department Care Team (Latest Contact Info) Description 08/13/2025 Travel Social History Tobacco Use Types Packs/Day [...] documented as of this encounter Care Teams Capacitor Assembler Relationship Specialty Start Date End Date Name, MD Stephen [address] [place] [address] PCP - General Internal Medicine 04/29/23 documented as of this encounter
--- OUTSIDE RECORDS SUMMARY | 2025-08-18 19:46 | XMS_ITS | Encounter Summary ---
Author Organization [employer] Address [address] [facility] 7t [place] [address] Care Team Providers Care Data Developer Name Role Phone Name, Stephen PADRON Primary Care Provider Encounter Details Date Type Department Care Team (Latest Contact Info) Description 08/18/2025 Travel Social History Tobacco Use Types Packs/Day [...] AM EDT documented as of this encounter Functional Status * Over the [...] Author Not at all 08/18/2025 2:28 PM LBAIRT Asher Young [place] * Feeling bad about yourself - or that you are a failure or have let yourself or your family down Answer Date of Assessment Author Not at all 08/18/2025 2:28 PM BLAIRT Asher Young [place] * Trouble concentrating on things, such as reading the newspaper or watching television Answer Date of Assessment Author Not at all 08/18/2025 2:28 PM BLAIRT Asher Young [place] * Moving or speaking [...] 2:28 PM EDT Asher Young MA * Patient Health Questionnaire-9 Score Answer Date of Assessment Author 4 08/18/2025 2:28 PM Asher Lee MA * Over the last 2 weeks, how often have you been bothered by any of the following problems? Question Answer Date of Assessment Author Feeling nervous, anxious, or on edge 1 08/18/2025 2:28 PM EDT Katiuska Young MA Not being able to stop or control worrying 1 08/18/2025 2:28 PM BLAIRT Katiuska Young MA Worrying too much about different things 1 08/18/2025 2:28 PM Katiuska Lee MA Trouble relaxing 1 08/18/2025 2:28 PM EDT Asher Lucero MA Being so restless that it is hard to sit still 0 08/18/2025 2:28 PM BLAIRT Katiuska Young MA Becoming easily annoyed or irritable 1 08/18/2025 2:28 PM Katiuska Lee MA Feeling afraid as if somethi ng awful might happen 0 08/18/2025 2:28 PM Katiuska Lee MA ALISTAIR-7 Total Score 5 08/18/2025 2:28 PM Asher Lee MA documented as of this encounter Plan of Treatment Not on file documented as of this encounter Visit Diagnoses Not on filedocumented in this encounter Additional Health Concerns Assessment Noted Time PHQ-9 Depression Total Score: 4 08/18/20 25 2:28 PM EDT documented as of this encounter Care Teams Data Developer Relationship Specialty Start Date End Date Name, MD Stephen [address] [place] [address] PCP - General Internal Medicine 04/29/23 documented as of this encounter
--- OUTSIDE RECORDS SUMMARY | 2025-08-18 19:46 | XMS_ITS | Encounter Summary ---
Author Organization [facility] Address [address] [facility] [address] [place] [address] Phone Care Team Providers Care Sprinkler Inspector Name Role Phone Devuaghn Ng MD Unavailable [phone] Billy Issa MD Unavailable [phone] Mil Rowe MD Unavailable [phone] Billy Issa MD Primary Care Provid er Encounter Details Date Type Department Care Team (Late st Contact Info) Description 12/13/2020 Procedure Pass Non-Invasive Cardiology [address] [place] [address] Social History Tobacco Use Types Packs/Day Years [...] on filedocumented in this encounter Care Teams Sprinkler Inspector Relationship Specialty Start Date End Date Billy Issa MD [address] [facility] 1 [place] [phone] PCP - General 10/24/17 Devaughn Ng MD [email or web address] Historical LMR Provider 08/10/17 Billy Issa MD [address] [place] [address] 1 [place] [phone] Historical LMR Provider 08/10/17 2 Mil Rowe MD [address] [place] [address] [email or web address] Historical LMR Provider 08/10/17 10/28/21 documented as of this encounter Additional Source Comments The information contained in this document represents components of the legal health record. It is not the complete legal health record.[facility]
--- OUTSIDE RECORDS SUMMARY | 2025-08-18 19:46 | XMS_ITS | Encounter Summary ---
Author Organization [facility] Address [address] [facility] [address] [place] [address] Phone Care Team Providers Care Shoe Shanker Name Role Phone Devaughn Ng MD Unavailable Billy Issa MD Unavailable [phone] Mil Rowe MD Unavailable [phone] Billy Issa MD Primary Care Provid er Encounter Details Date Type Department Care Team (Late st Contact Info) Description 03/23/2021 Ancillary [facility] [address] [facility] 3rd Floor, [address] [place] [address] Walter Sheikh MD [address] [place] [address] [email or web address] Social History Tobacco Use Types Packs/Day Years [...] on filedocumented in this encounter Care Teams Shoe Shanker Relationship Specialty Start Date End Date Billy Issa MD [address] [facility] [address] [place] [address] PCP - General 10/24/17 Devaughn Ng MD [email or web address] Historical LMR Provider 08/10/17 Billy Issa MD [address] [place] [address] Historical LMR Provider 08/10/17 2 Mil Rowe MD [address] [place] [phone] [email or web address] Historical LMR Provider 08/10/17 10/28/21 documented as of this encounter Additional Source Comments The information contained in this document represents components of the legal health record. It is not the complete legal health record.[facility]
--- OUTSIDE RECORDS SUMMARY | 2025-08-18 19:46 | XMS_ITS | Encounter Summary ---
Author Organization [facility] Address [address] [address] Phone Care Team Providers Care Supervisor Blast Furnace Name Role Phone Devaughn Ng MD Unavailable [phone] Billy Issa MD Unavailable [phone] Mil Rowe MD Unavailable [phone] Billy Issa MD Primary Care Provid er Encounter Details Date Type Department Care Team (Latest Contact Info) Description 05/28/2018 Ancillary Orders Non-Invasive Cardiology [address] [place] [address] Devaughn Ng MD [address] [place] [address] [email or web address] Cardioembolic stroke Social History Tobacco Use Types [...] stroke documented in this encounter Care Teams Supervisor Blast Furnace Relationship Specialty Start Date End Date Billy Issa MD [address] [facility] [address] [place] [address] PCP - General 10/24/17 Devaughn Ng MD [email or web address] Historical LMR Provider 08/10/17 Billy Issa MD [address] [place] [phone] Historical LMR Provider 08/10/17 2 Mil Rowe MD [address] [place] [address] [email or web address] Historical LMR Provider 08/10/17 10/28/21 documented as of this encounter Additional Source Comments The information contained in this document represents components of the legal health record. It is not the complete legal health record.[facility]
--- OUTSIDE RECORDS SUMMARY | 2025-08-18 19:46 | XMS_ITS | Encounter Summary ---
Author Organization [facility] Address [address] [facility] [address] [place] [address] Phone Care Team Providers Care Dobby Loom Fixer Name Role Phone Devaughn Ng MD Unavailable [phone] Billy Issa MD Unavailable [phone] Mil Rowe MD Unavailable [phone] Billy Issa MD Primary Care Provid er Encounter Details Date Type Department Care Team (Late st Contact Info) Description 12/13/2020 Ancillary Orders Non-Invasive Cardiology [address] [place] [address] Devaughn Ng MD [address] [place] [address] [email or web address] Cryptogenic stroke Social History Tobacco Use Types [...] EST Interrogation of [employer] implantable loop recorder. Indication cryptogenic stroke. Since last interrogation - Bradycardia 0 Tachycardia 0 Pauses 0 Atrial tachycardia/atrial fibrillation 0 We will continue to monitor routinely. Eduard Kraft CITY PLANNING ENGINEER Devaughn Ng MD [facility] [place] Final Result documented in this encounter Visit Diagnoses Diagnosis Cryptogenic stroke Cryptogenic stroke documented in this encounter Care Teams Dobby Loom Fixer Relationship Specialty Start Date End Date Billy Issa MD [address] [facility] [address] [place] [phone] PCP - General 10/24/17 Devaughn Ng MD [email or web address] Historical LMR Provider 08/10/17 Billy Issa MD [address] [place] [address] [address] [place] [address] Historical LMR Provider 08/10/17 2 Mil Rowe MD [address] [place] [address] [email or web address] Historical LMR Provider 08/10/17 10/28/21 documented as of this encounter Additional Source Comments The information contained in this document represents components of the legal health record. It is not the complete legal health record.[facility]
--- OUTSIDE RECORDS SUMMARY | 2025-08-18 19:46 | XMS_ITS | Encounter Summary ---
Author Organization [facility] Address [address] [facility] [address] [place] [address] Phone Care Team Providers Care Tractor Distributor Name Role Phone Devaughn Ng MD Unavailable [phone] Billy Issa MD Unavailable [phone] Mil Rowe MD Unavailable [phone] Billy Issa MD Primary Care Provid er Encounter Details Date Type Department Care Team (Late st Contact Info) Description 05/13/2018 Ancillary Orders Non-Invasive Cardiology [address] [place] [address] Devaughn Ng MD [address] [place] [address] [email or web address] Atrial fibrillation, unspecified type Social History [...] patient is anticoagulated on Xarelto. Eduard Kraft ROTARY RIG ENGINE OPERATOR Devaughn Ng MD [facility] ORDER [place] Final Result documented in this encounter Visit Diagnoses Diagnosis Atrial fibrillation, unspecified type Atrial fibrillation, unspecified type documented in this encounter Care Teams Tractor Distributor Relationship Specialty Start Date End Date Billy Issa MD [address] [facility] [address] [place] [phone] PCP - General 10/24/17 Devaughn Ng MD [email or web address] Historical LMR Provider 08/10/17 Billy Issa MD [address] [facility] [address] [place] [phone] Historical LMR Provider 08/10/17 2 Mil Rowe MD [address] [place] [address], [address] [address] [email or web address] Historical LMR Provider 08/10/17 10/28/21 documented as of this encounter Additional Source Comments The information contained in this document represents components of the legal health record. It is not the complete legal health record.[facility]
--- OUTSIDE RECORDS SUMMARY | 2025-08-18 19:46 | XMS_ITS | Encounter Summary ---
Author Organization [facility] Address [address] [facility] [address] [place] [address] Phone Care Team Providers Care Screenplay Writer Name Role Phone Devaughn Ng MD Unavailable Billy Issa MD Unavailable [phone] Mil Rowe MD Unavailable [phone] Billy Issa MD Primary Care Provid er Encounter Details Date Type Department Care Team (Late st Contact Info) Description 01/10/2018 Procedure Pass [facility] [address] [place] [address] Social History Tobacco Use Types Packs/Day Years [...] on filedocumented in this encounter Care Teams Screenplay Writer Relationship Specialty Start Date End Date Billy Issa MD [address] [facility] 1 [place] [address] PCP - General 10/24/17 Devaughn Ng MD [email or web address] Historical LMR Provider 08/10/17 Billy Issa MD [address] [place] [address] 1 [place] [address] Historical LMR Provider 08/10/17 2 Mil Rowe MD [address] [place] [address] [email or web address] Historical LMR Provider 08/10/17 10/28/21 documented as of this encounter Additional Source Comments The information contained in this document represents components of the legal health record. It is not the complete legal health record.[facility]
--- OUTSIDE RECORDS SUMMARY | 2025-08-18 19:46 | XMS_ITS | Encounter Summary ---
Author Organization [facility] Address [address] [facility] [address] [place] [address] Phone Care Team Providers Care Merchandising Lead Name Role Phone Devaughn Ng MD Unavailable Billy Issa MD Unavailable [phone] Mil Rowe MD Unavailable [phone] Billy Issa MD Primary Care Provid er Encounter Details Date Type Department Care Team (Late st Contact Info) Description 05/13/2018 Ancillary [facility] [address] [place] [address] Devaughn Ng MD [address] [place] [address] [email or web address] Social History Tobacco Use Types Packs/Day Years [...] on filedocumented in this encounter Care Teams Merchandising Lead Relationship Specialty Start Date End Date Billy Issa MD [address] [facility] [address] [place] [address] PCP - General 10/24/17 Devaughn Ng MD [email or web address] Historical LMR Provider 08/10/17 Billy Issa MD [address] [place] [address] 1 [place] [address] Historical LMR Provider 08/10/17 2 Mil Rowe MD [address] [place] [address] [email or web address] Historical LMR Provider 08/10/17 10/28/21 documented as of this encounter Additional Source Comments The information contained in this document represents components of the legal health record. It is not the complete legal health record.[facility]
--- OUTSIDE RECORDS SUMMARY | 2025-08-18 19:46 | XMS_ITS | Encounter Summary ---
Author Organization [facility] Address [address] [facility] [address] [place] [address] Phone Care Team Providers Care Car Inspection And Repair Manager Name Role Phone Devaughn Ng MD Unavailable [phone] Billy Issa MD Unavailable [phone] Mil Rowe MD Unavailable [phone] Billy Isas MD Primary Care Provid er Encounter Details Date Type Department Care Team (Late st Contact Info) Description 03/23/2021 Procedure Pass Non-Invasive Cardiology [address] [place] [address] Social History Tobacco Use Types Packs/Day Years [...] on filedocumented in this encounter Care Teams Car Inspection And Repair Manager Relationship Specialty Start Date End Date Billy Issa MD [address] [facility] 1 [place] [phone] PCP - General 10/24/17 Devaughn Ng MD [email or web address] Historical LMR Provider 08/10/17 Billy Issa MD [address] [place] [address] 1 [place] [phone] Historical LMR Provider 08/10/17 2 Mil Rowe MD [address] [place] [address] [email or web address] Historical LMR Provider 08/10/17 10/28/21 documented as of this encounter Additional Source Comments The information contained in this document represents components of the legal health record. It is not the complete legal health record.[facility]
--- OUTSIDE RECORDS SUMMARY | 2025-08-18 19:46 | XMS_ITS | Encounter Summary ---
Author Organization [facility] Address [address] [facility] [address] [place] [address] Phone Care Team Providers Care Solar Panel Technician Name Role Phone Devaughn Ng MD Unavailable [phone] Billy Issa MD Unavailable [phone] Mil Rowe MD Unavailable [phone] Billy Issa MD Primary Care Provid er Encounter Details Date Type Department Care Team (Late st Contact Info) Description 03/23/2021 Ancillary Orders Non-Invasive Cardiology [address] [place] [address] Walter Sheikh MD [address] [place] [address] [email or web address] Cryptogenic stroke Social History Tobacco Use Types [...] EDT Remote interrogation of implantable loop recorder. 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 Normal device function. Patient to follow-up for continued monitoring every 1 month. Report prepared by Brenna Tyler RN us Walter Sheikh MD CV CARDIAC SERVICES ORDER [place] Final Result documented in this encounter Visit Diagnoses Diagnosis Cryptogenic stroke Cryptogenic stroke documented in this encounter Care Teams Solar Panel Technician Relationship Specialty Start Date End Date Billy Issa MD [address] [phone] PCP - General 10/24/17 Devaughn Ng MD [email or web address] Historical LMR Provider 08/10/17 Billy Issa MD [address] [phone] Historical LMR Provider 08/10/17 2 Mil Rwoe MD [address] [place] [address] [email or web address] Historical LMR Provider 08/10/17 10/28/21 documented as of this encounter Additional Source Comments The information contained in this document represents components of the legal health record. It is not the complete legal health record.[facility]
--- OUTSIDE RECORDS SUMMARY | 2025-08-18 19:46 | XMS_ITS | Encounter Summary ---
Author Organization [facility] Address [address] [facility] [address] [place] [address] Phone Care Team Providers Care Reweaver Name Role Phone Devaughn Ng MD Unavailable Billy Issa MD Unavailable [phone] Mil Rowe MD Unavailable [phone] Billy Issa MD Primary Care Provid er Encounter Details Date Type Department Care Team (Late st Contact Info) Description 01/10/2018 Procedure Pass [facility] 30 [place] [address] Social History Tobacco Use Types Packs/Day Years [...] on filedocumented in this encounter Care Teams Reweaver Relationship Specialty Start Date End Date Billy Issa MD [address] [facility] 1 [place] [phone] PCP - General 10/24/17 Devaughn Ng MD [email or web address] Historical LMR Provider 08/10/17 Billy Issa MD [address] [place] [address] 1 [place] [phone] Historical LMR Provider 08/10/17 2 Mil Rowe MD [address] [place] [address] [email or web address] Historical LMR Provider 08/10/17 10/28/21 documented as of this encounter Additional Source Comments The information contained in this document represents components of the legal health record. It is not the complete legal health record.[facility]
--- OUTSIDE RECORDS SUMMARY | 2025-08-18 19:46 | XMS_ITS | Encounter Summary ---
Author Organization [facility] Address [address] [facility] [address] [place] [address] Phone Care Team Providers Care Facilities Painter Name Role Phone Devaughn Ng MD Unavailable [phone] Billy Issa MD Unavailable [phone] Mil Rowe MD Unavailable [phone] Billy Issa MD Primary Care Provid er Encounter Details Date Type Department Care Team (Late st Contact Info) Description 05/28/2018 Ancillary [facility] [address] [place] [address] Devaughn Ng MD [address] [place] [address] [email or web address] Social History Tobacco Use Types Packs/Day Years [...] on filedocumented in this encounter Care Teams Facilities Painter Relationship Specialty Start Date End Date Billy sIsa MD [address] [facility] [address] [place] [address] PCP - General 10/24/17 Devaughn Ng MD [email or web address] Historical LMR Provider 08/10/17 Billy Issa MD [address] [place] [address] 1 [place] [address] Historical LMR Provider 08/10/17 2 Mil Rowe MD [address] [place] [address] [email or web address] Historical LMR Provider 08/10/17 10/28/21 documented as of this encounter Additional Source Comments The information contained in this document represents components of the legal health record. It is not the complete legal health record.[facility]
== END 2025-08-18 15:26 | disposition home or self-care (01) ==
LOC: HO.HHCX 15:25
PROVIDERS: PCP Internal Medicine Geriatric Medicine; Visit Provider Internal Medicine Geriatric Medicine
DX: M25.561 Pain in right knee (principal); G89.29 Other chronic pain
CPT/HCPCS: 73502

== ENCOUNTER → 2025-08-18 15:31 | Outpatient (BNV) | payer MEDICARE, OTHER, SELFPAY | PROVIDERS: PCP Internal Medicine Geriatric Medicine; Visit Provider Radiology Diagnostic Radiology | DX: M16.11 Unilateral primary osteoarthritis, right hip (principal) | CPT/HCPCS: 73502 ==